=== PATIENT | male | born 1940 | race Caucasian/White ===

== ENCOUNTER → 2016-07-12 | Outpatient (CLI) | payer MEDICARE, OTHER ==
[~2016-07-12] MED LIST: ADVAIR DISKUS1 DS2 IH; AGGRENOX 25 MG-1 CER PO; AGGRENOX ER 251 CER PO; ALLERGY10 M1 PO; AMLODIPINE BES2.5 MG PO; CELEBREX 200MG200 MG PO; CODEINE-GUAIFE120 ML PO; FLEXERIL 1010 MG/TAB PO; FLOVENT DI100 MCG/Ac IH; FLUOXETINE40 MG PO; GABAPENTIN600 MG PO; IPRATROPIUM BROM3 M1 IH; LEVAQUIN 5500 MG/TA1 PO; LEVSIN0.125 MG PO; LOFIBRA54 MG PO; LOPRESSOR 550 MG/TAB PO; LOSARTAN POTAS100 MG PO; METOPROLOL TART50 MG PO; MIRAPEX 1MG PO; MIRAPEX0.25 MG PO; NORCO 325 MG-7.1 TA1 PO; NORVASC2.5 MG PO; PRILOSEC 20MG20 MG PO; PROAIR RESPICL90 MCG INH; PROVENTIL0.09 MG/A1 IH; RANITIDINE150 MG PO; RT ALBUTEROL CC18 GM IH; RT SPIRIVA INH18 MCG IH; TESSALON PERLE100 M1 PO; TYLENOL EXTRA500 M2 PO; VITAMIN D32000 IU PO; ZANTAC150 M1 PO; ZOCOR40 MG PO
== END ==
LOC: RAD 11:57
DX: Z00.00 Encounter for general adult medical examination without abnormal findings (principal); K21.9 Gastro-esophageal reflux disease without esophagitis

== ENCOUNTER → 2016-09-13 | Outpatient (CLI) | payer MEDICARE, OTHER | LOC: LAB 10:45 | DX: J44.9 Chronic obstructive pulmonary disease, unspecified (principal); M15.9 Polyosteoarthritis, unspecified; N18.3 Chronic kidney disease, stage 3 (moderate) ==

== ENCOUNTER → 2016-10-02 | Outpatient (CLI) | payer MEDICARE, OTHER ==
[2016-03-04 13:04] VITALS: BP 147/72
== END ==
LOC: RAD 10:06
DX: R06.02 Shortness of breath (principal)

== ENCOUNTER → 2016-10-09 | Outpatient (CLI) | payer MEDICARE, OTHER ==
[2016-03-04 13:04] VITALS: BP 147/72
== END ==
LOC: LAB 10:05
DX: J44.9 Chronic obstructive pulmonary disease, unspecified (principal); N18.3 Chronic kidney disease, stage 3 (moderate)

== ENCOUNTER → 2016-10-14 | Outpatient (CLI) | payer MEDICARE, OTHER ==
[2016-10-14 12:23] VITALS: BP 145/76
== END ==
LOC: AMSURD 12:13
DX: I10 Essential (primary) hypertension (principal); R06.09 Other forms of dyspnea

== ENCOUNTER → 2016-10-15 | Outpatient (CLI) | payer MEDICARE, OTHER ==
[2016-10-14 12:23] VITALS: BP 145/76
== END ==
LOC: RAD 14:00 → VAS 16:52
DX: R06.09 Other forms of dyspnea (principal); I34.0 Nonrheumatic mitral (valve) insufficiency

== ENCOUNTER → 2016-10-17 | Outpatient (CLI) | payer MEDICARE, OTHER ==
--- NOTE | 2016-10-17 16:55 | NUR ---
Dr. Turner notified for clarification of orders, orders received.
[2016-10-17 17:36] VITALS: BP 131/62
--- NOTE | 2016-10-17 17:46 | NUR ---
patient refuses any fluids or dinner, he states drinking water does not help his cough.
[2016-10-17 19:11] VITALS: BP 121/78
--- NOTE | 2016-10-17 19:12 | NUR ---
at approximately 1855 this patient requests IVF be stopped so he can go home, approx 900ml had infused, IVF were stopped, IV catheter was dc'd, bandaid to site, there is no bleeding noted, he is dismissed per w/c to care of spouse, he states he is aware of f/u appointment with Dr. Turner.
== END ==
LOC: AMSURD 15:26 → LAB 15:26
DX: R06.09 Other forms of dyspnea (principal); R05 Cough; J44.9 Chronic obstructive pulmonary disease, unspecified; I10 Essential (primary) hypertension; N18.3 Chronic kidney disease, stage 3 (moderate)
CPT/HCPCS: J2920; J7030

== ENCOUNTER → 2017-04-25 | Outpatient (CLI) | payer MEDICARE, OTHER ==
[2016-10-17 19:11] VITALS: BP 121/78
[2017-04-25 16:22] LABS: URINE APPEARANCE CLEAR; URINE COLOR YELLOW
[2017-04-25 16:23] LABS: URINE BILIRUBIN NEGATIVE (NEGATIVE); URINE BLOOD TRACE (NEGATIVE); URINE KETONE NEGATIVE (NEGATIVE); URINE NITRATE NEGATIVE (NEGATIVE); URINE PROTEIN(semi-quant) TRACE mg/dL (NEGATIVE); URINE UROBILINOGEN NORMAL (NORMAL)
[2017-04-25 16:24] LABS: URINE LEUKOCYTE ESTERASE NEGATIVE (NEGATIVE)
== END ==
LOC: LAB 15:32
PROVIDERS: Family Medicine
DX: R35.8 Other polyuria (principal)

== ENCOUNTER → 2017-07-17 | Outpatient (CLI) | payer MEDICARE, OTHER ==
[2016-10-17 19:11] VITALS: BP 121/78
[2017-07-17 10:50] LABS: ALBUMIN 4.2 g/dL (3.5-5.0); BUN/CREATININE RATIO 13.5 (6.0-26.0); CALCIUM 9.3 mg/dL (8.4-10.2); POTASSIUM 4.5 mmol/L (3.6-5.0); TOTAL BILIRUBIN 0.6 mg/dL (0.2-1.3); TOTAL PROTEIN 7.5 g/dL (6.3-8.2)
== END ==
LOC: LAB 10:02
PROVIDERS: Family Medicine
DX: E78.2 Mixed hyperlipidemia (principal); Z88.5 Allergy status to narcotic agent; Z91.030 Bee allergy status

== ENCOUNTER → 2017-12-01 | Outpatient (CLI) | payer MEDICARE, OTHER ==
[2016-10-17 19:11] VITALS: BP 121/78
[~2017-12-01] MED LIST changes: +BACTRIM DS 8001 TAB PO; +DITROPAN 5MG TAB5 MG PO; +GOOD NEIGHBOR180 MG PO; +SERTRALINE HYD100 MG PO
[2017-12-01 13:38] LABS: URINE COLOR YELLOW
[2017-12-01 13:39] LABS: URINE APPEARANCE CLEAR; URINE BILIRUBIN NEGATIVE (NEGATIVE); URINE BLOOD NEGATIVE (NEGATIVE); URINE GLUCOSE NEGATIVE (NEGATIVE); URINE KETONE NEGATIVE (NEGATIVE); URINE LEUKOCYTE ESTERASE 1+ (NEGATIVE); URINE NITRATE NEGATIVE (NEGATIVE); URINE PROTEIN(semi-quant) TRACE mg/dL (NEGATIVE); URINE UROBILINOGEN NORMAL (NORMAL)
[2017-12-01 13:40] LABS: URINE WBC 16-30 /hpf (0-3)
== END ==
LOC: LAB 12:35
PROVIDERS: Family Medicine
DX: R39.15 Urgency of urination (principal); N30.00 Acute cystitis without hematuria

== ENCOUNTER 2017-12-02 10:19 | Emergency (ER) | payer MEDICARE, OTHER ==
[~2017-12-02] VITALS: Ht 167.6 cm; Wt 100.0 kg
[~2017-12-02 10:19] MED LIST changes: -BACTRIM DS 8001 TAB PO; -DITROPAN 5MG TAB5 MG PO; -GOOD NEIGHBOR180 MG PO; -SERTRALINE HYD100 MG PO
[2017-12-02 10:49] LABS: EOS # 0.3 (0.04-0.40); HEMATOCRIT 42.7 % (42.0-52.0); HEMOGLOBIN 14.4 g/dL (13.5-18.0); LYMPH# 2.4 (1.50-4.00); MEAN CELL VOLUME 93 fl (78-100); MEAN CORPUSCULAR HEMOGLOBIN 31 pg (27-31); MEAN CORPUSCULAR HGB CONC 34 g/dL (33-37); MEAN PLATELET VOLUME 8.9 fl (7.4-10.4); MONO # 0.5 (0.20-0.80); NEU # 2.5 (1.40-6.50); PLATELET COUNT 180 K/mm3 (130-400); RED CELL DISTRIBUTION WIDTH 14.3 % (11.5-14.5); WHITE BLOOD COUNT 5.7 K/mm3 (4.8-10.8)
[2017-12-02 10:54] LABS: EOS % 5.1 % (0.0-4.0)
[2017-12-02 11:07] LABS: PARTIAL THROMBOPLASTIN TIME 21.8 SECONDS (21.0-32.0); PROTHROMBIN TIME 9.7 SECONDS (9.0-12.0)
[2017-12-02 11:11] LABS: ALBUMIN 4.1 g/dL (3.5-5.0); BUN/CREATININE RATIO 18.3 (6.0-26.0); CALCIUM 8.9 mg/dL (8.4-10.2); POTASSIUM 4.3 mmol/L (3.6-5.0); TOTAL BILIRUBIN 0.5 mg/dL (0.2-1.3); TOTAL PROTEIN 7.4 g/dL (6.3-8.2)
[2017-12-02] MEDS ORDERED: BACTRIM DS 8001 TAB PO (11:16)
[2017-12-02] MEDS ORDERED: AGGRENOX 25 MG-1 CER PO (11:19)
[2017-12-02] MEDS ORDERED: GOOD NEIGHBOR180 MG PO (11:23)
[2017-12-02] MEDS ORDERED: DITROPAN 5MG TAB5 MG PO (11:24)
[2017-12-02] MEDS ORDERED: SERTRALINE HYD100 MG PO (11:25)
[2017-12-02 12:46] LABS: URINE APPEARANCE CLEAR; URINE COLOR YELLOW
[2017-12-02 12:47] LABS: URINE BILIRUBIN NEGATIVE (NEGATIVE); URINE BLOOD NEGATIVE (NEGATIVE); URINE GLUCOSE NEGATIVE (NEGATIVE); URINE KETONE NEGATIVE (NEGATIVE); URINE LEUKOCYTE ESTERASE 2+ (NEGATIVE); URINE MUCUS PRESENT (NOT PRESENT); URINE NITRATE NEGATIVE (NEGATIVE); URINE PROTEIN(semi-quant) TRACE mg/dL (NEGATIVE); URINE UROBILINOGEN NORMAL (NORMAL)
[2017-12-02 14:00] VITALS: BP 137/58
== END 2017-12-02 14:13 | disposition home or self-care (01) ==
LOC: ED 10:19
PROVIDERS: Nurse Practitioner
DX: N39.0 Urinary tract infection, site not specified (principal); R41.0 Disorientation, unspecified; Z86.73 Personal history of transient ischemic attack (TIA), and cerebral infarction without residual deficits; I10 Essential (primary) hypertension; Z87.891 Personal history of nicotine dependence; Z79.899 Other long term (current) drug therapy
CPT/HCPCS: J7030

== ENCOUNTER → 2017-12-11 | Outpatient (CLI) | payer MEDICARE, OTHER ==
[2017-12-02 14:00] VITALS: BP 137/58
[~2017-12-11] MED LIST changes: +BACTRIM DS 8001 TAB PO; +DITROPAN 5MG TAB5 MG PO; +GOOD NEIGHBOR180 MG PO; +SERTRALINE HYD100 MG PO
[2017-12-11 11:57] LABS: URINE APPEARANCE CLEAR; URINE BILIRUBIN NEGATIVE (NEGATIVE); URINE COLOR YELLOW; URINE GLUCOSE NEGATIVE (NEGATIVE); URINE KETONE NEGATIVE (NEGATIVE); URINE NITRATE NEGATIVE (NEGATIVE); URINE PROTEIN(semi-quant) TRACE mg/dL (NEGATIVE); URINE UROBILINOGEN NORMAL (NORMAL)
[2017-12-11 11:58] LABS: URINE BLOOD NEGATIVE (NEGATIVE); URINE LEUKOCYTE ESTERASE 1+ (NEGATIVE); URINE MUCUS PRESENT (NOT PRESENT)
== END ==
LOC: LAB 11:25
PROVIDERS: Family Medicine
DX: N30.00 Acute cystitis without hematuria (principal); N48.1 Balanitis

== ENCOUNTER 2018-07-11 12:52 | Emergency (ER) | payer MEDICARE, OTHER ==
[~2018-07-11] VITALS: Ht 167.6 cm; Wt 96.4 kg
[2018-07-11 14:08] LABS: EOS % 0.1 % (0.0-4.0); HEMATOCRIT 40.9 % (42.0-52.0); HEMOGLOBIN 14.1 g/dL (13.5-18.0); LYMPH# 1.9 (1.50-4.00); MEAN CELL VOLUME 94 fl (78-100); MEAN CORPUSCULAR HEMOGLOBIN 32 pg (27-31); MEAN CORPUSCULAR HGB CONC 35 g/dL (33-37); MEAN PLATELET VOLUME 9.2 fl (7.4-10.4); MONO # 1.2 (0.20-0.80); PLATELET COUNT 160 K/mm3 (130-400); RED BLOOD COUNT 4.35 M/mm3 (4.20-5.60); RED CELL DISTRIBUTION WIDTH 13.8 % (11.5-14.5); WHITE BLOOD COUNT 15.4 K/mm3 (4.8-10.8)
[2018-07-11 14:13] LABS: NEU # 12.3 (1.40-6.50)
[2018-07-11 14:17] LABS: ALBUMIN 4.3 g/dL (3.5-5.0); CALCIUM 9.3 mg/dL (8.4-10.2); POTASSIUM 4.1 mmol/L (3.6-5.0); TOTAL BILIRUBIN 1.8 mg/dL (0.2-1.3); TOTAL PROTEIN 7.7 g/dL (6.3-8.2)
[2018-07-11] MEDS ORDERED: FLOMAX0.4 MG PO (14:22)
[2018-07-11 14:46] LABS: URINE APPEARANCE HAZY; URINE BILIRUBIN NEGATIVE (NEGATIVE); URINE BLOOD 250 ery/uL (NEGATIVE); URINE COLOR YELLOW; URINE GLUCOSE NEGATIVE (NEGATIVE); URINE KETONE NEGATIVE (NEGATIVE); URINE NITRATE POSITIVE (NEGATIVE); URINE PROTEIN(semi-quant) 3+ mg/dL (NEGATIVE); URINE UROBILINOGEN NORMAL (NORMAL)
[2018-07-11 14:47] LABS: URINE LEUKOCYTE ESTERASE 1+ (NEGATIVE); URINE WBC 16-30 /hpf (0-3)
[2018-07-11] MEDS ORDERED: LEVAQUIN 5500 MG/TA1 PO (17:53)
[2018-07-11] MEDS ORDERED: AGGRENOX 25 MG-1 CER PO (18:09)
[2018-07-11 18:13] VITALS: BP 130/54
== END 2018-07-11 18:33 | disposition home or self-care (01) ==
LOC: ED 12:52
PROVIDERS: Family Medicine
DX: R32 Unspecified urinary incontinence (principal); R27.0 Ataxia, unspecified; R06.00 Dyspnea, unspecified; I12.9 Hypertensive chronic kidney disease with stage 1 through stage 4 chronic kidney disease, or unspecified chronic kidney disease; N18.9 Chronic kidney disease, unspecified; J44.9 Chronic obstructive pulmonary disease, unspecified; N13.9 Obstructive and reflux uropathy, unspecified; N39.0 Urinary tract infection, site not specified; Z86.73 Personal history of transient ischemic attack (TIA), and cerebral infarction without residual deficits; Z79.82 Long term (current) use of aspirin

== ENCOUNTER → 2018-08-08 | Outpatient (CLI) | payer MEDICARE, OTHER ==
[2018-07-11 18:13] VITALS: BP 130/54
[~2018-08-08] MED LIST changes: +FLOMAX0.4 MG PO
[2018-08-08 09:11] LABS: ALBUMIN 4.3 g/dL (3.5-5.0); CALCIUM 9.2 mg/dL (8.4-10.2); POTASSIUM 4.3 mmol/L (3.6-5.0); TOTAL BILIRUBIN 0.5 mg/dL (0.2-1.3); TOTAL PROTEIN 7.3 g/dL (6.3-8.2)
== END ==
LOC: LAB 07:59
PROVIDERS: Family Medicine
DX: I12.9 Hypertensive chronic kidney disease with stage 1 through stage 4 chronic kidney disease, or unspecified chronic kidney disease (principal); N18.3 Chronic kidney disease, stage 3 (moderate); E78.2 Mixed hyperlipidemia

== ENCOUNTER → 2018-09-24 | Outpatient (CLI) | payer MEDICARE, OTHER | LOC: RAD 07:27 | DX: N18.9 Chronic kidney disease, unspecified (principal); N28.9 Disorder of kidney and ureter, unspecified ==

== ENCOUNTER → 2018-10-14 | Outpatient (CLI) | payer MEDICARE, OTHER ==
[2018-10-14 12:28] LABS: HEMATOCRIT 42.8 % (42.0-52.0); MEAN PLATELET VOLUME 9.4 fl (7.4-10.4); RED BLOOD COUNT 4.59 M/mm3 (4.20-5.60); RED CELL DISTRIBUTION WIDTH 14.6 % (11.5-14.5); WHITE BLOOD COUNT 5.8 K/mm3 (4.8-10.8)
[2018-10-14 13:26] LABS: ALBUMIN 4.2 g/dL (3.5-5.0); CALCIUM 9.3 mg/dL (8.4-10.2); POTASSIUM 4.5 mmol/L (3.6-5.0)
[2018-10-14 13:39] LABS: URINE APPEARANCE CLOUDY; URINE BILIRUBIN NEGATIVE (NEGATIVE); URINE COLOR YELLOW; URINE GLUCOSE NEGATIVE (NEGATIVE); URINE KETONE NEGATIVE (NEGATIVE); URINE PROTEIN(semi-quant) 1+ mg/dL (NEGATIVE); URINE UROBILINOGEN NORMAL (NORMAL)
[2018-10-14 13:40] LABS: URINE BLOOD TRACE (NEGATIVE); URINE LEUKOCYTE ESTERASE 2+ (NEGATIVE); URINE NITRATE POSITIVE (NEGATIVE); URINE WBC >50 /hpf (0-3)
== END ==
LOC: LAB 11:31
PROVIDERS: Family Medicine
DX: I12.9 Hypertensive chronic kidney disease with stage 1 through stage 4 chronic kidney disease, or unspecified chronic kidney disease (principal); N18.4 Chronic kidney disease, stage 4 (severe)

== ENCOUNTER → 2018-10-27 | Outpatient (CLI) | payer MEDICARE, OTHER ==
[2018-10-27 08:04] LABS: HEMATOCRIT 45.4 % (42.0-52.0); HEMOGLOBIN 14.9 g/dL (13.5-18.0)
[2018-10-27 08:28] LABS: URINE APPEARANCE CLEAR; URINE COLOR YELLOW
[2018-10-27 08:29] LABS: URINE BILIRUBIN NEGATIVE (NEGATIVE); URINE BLOOD NEGATIVE (NEGATIVE); URINE GLUCOSE NEGATIVE (NEGATIVE); URINE KETONE NEGATIVE (NEGATIVE); URINE NITRATE NEGATIVE (NEGATIVE); URINE PROTEIN(semi-quant) 1+ mg/dL (NEGATIVE); URINE UROBILINOGEN NORMAL (NORMAL)
[2018-10-27 08:36] LABS: URINE LEUKOCYTE ESTERASE 1+ (NEGATIVE)
[2018-10-27 08:39] LABS: URINE WBC 16-30 /hpf (0-3)
[2018-10-27 08:43] LABS: URINE MUCUS PRESENT (NOT PRESENT)
[2018-10-27 09:27] LABS: ALBUMIN 4.2 g/dL (3.4-4.8); CALCIUM 9.8 mg/dL (8.8-10.0)
== END ==
LOC: LAB 07:45
PROVIDERS: Internal Medicine
DX: I12.9 Hypertensive chronic kidney disease with stage 1 through stage 4 chronic kidney disease, or unspecified chronic kidney disease (principal); N18.4 Chronic kidney disease, stage 4 (severe)

== ENCOUNTER → 2018-12-07 | Outpatient (CLI) | payer MEDICARE, OTHER ==
[~2018-12-07] VITALS: Ht 167.6 cm; Wt 100.9 kg
[~2018-12-07] MED LIST changes: +BACTRIM DS TAB1 EACH PO
[2018-12-07 14:58] LABS: CALCIUM 9.4 mg/dL (8.3-10.5); POTASSIUM 4.3 mmol/L (3.5-5.1)
[2018-12-07 15:06] VITALS: BP 179/85
[2018-12-07 15:30] LABS: URINE APPEARANCE HAZY; URINE COLOR YELLOW
[2018-12-07 15:31] LABS: URINE BILIRUBIN NEGATIVE (NEGATIVE); URINE BLOOD TRACE (NEGATIVE); URINE GLUCOSE NEGATIVE (NEGATIVE); URINE KETONE NEGATIVE (NEGATIVE); URINE LEUKOCYTE ESTERASE 2+ (NEGATIVE); URINE NITRATE POSITIVE (NEGATIVE); URINE PROTEIN(semi-quant) 1+ mg/dL (NEGATIVE); URINE UROBILINOGEN NORMAL (NORMAL); URINE WBC >50 /hpf (0-3)
== END ==
LOC: AMSURD 14:22
PROVIDERS: Family Medicine
DX: I12.9 Hypertensive chronic kidney disease with stage 1 through stage 4 chronic kidney disease, or unspecified chronic kidney disease (principal); N18.3 Chronic kidney disease, stage 3 (moderate); R01.1 Cardiac murmur, unspecified; R41.0 Disorientation, unspecified

== ENCOUNTER → 2018-12-09 | Outpatient (CLI) | payer MEDICARE, OTHER ==
[2018-12-07 15:06] VITALS: BP 179/85
== END ==
LOC: RAD 13:21
DX: I51.7 Cardiomegaly (principal); I10 Essential (primary) hypertension; I35.0 Nonrheumatic aortic (valve) stenosis; R01.1 Cardiac murmur, unspecified; R60.9 Edema, unspecified

== ENCOUNTER → 2018-12-17 | Outpatient (CLI) | payer MEDICARE, OTHER ==
[2018-12-07 15:06] VITALS: BP 179/85
[2018-12-17 08:30] LABS: URINE COLOR YELLOW
[2018-12-17 08:31] LABS: URINE APPEARANCE CLOUDY; URINE BILIRUBIN NEGATIVE (NEGATIVE); URINE BLOOD TRACE (NEGATIVE); URINE GLUCOSE NEGATIVE (NEGATIVE); URINE KETONE NEGATIVE (NEGATIVE); URINE LEUKOCYTE ESTERASE 1+ (NEGATIVE); URINE MUCUS PRESENT (NOT PRESENT); URINE NITRATE NEGATIVE (NEGATIVE); URINE PROTEIN(semi-quant) TRACE mg/dL (NEGATIVE); URINE UROBILINOGEN NORMAL (NORMAL); URINE WBC >50 /hpf (0-3)
== END ==
LOC: LAB 07:51
PROVIDERS: Family Medicine
DX: N39.0 Urinary tract infection, site not specified (principal)

== ENCOUNTER → 2019-01-21 | Outpatient (CLI) | payer MEDICARE, OTHER ==
[2019-01-07 14:21] VITALS: BP 115/74
[~2019-01-21] MED LIST changes: +MASON NATURAL500 MG PO; +NATURAL L-LYSI500 MG PO; +OMEGA 3 1,0001 EACH PO; +ST. JOSEPH ASPI81 MG PO; +SUPER B-50 COM1 EACH PO
== END ==
LOC: RAD 07:03
PROVIDERS: Internal Medicine Interventional Cardiology
DX: I65.23 Occlusion and stenosis of bilateral carotid arteries (principal)
CPT/HCPCS: Q9967

== ENCOUNTER → 2019-01-28 | Outpatient (CLI) | payer MEDICARE, OTHER ==
[2019-01-07 14:21] VITALS: BP 115/74
[2019-01-28 13:17] LABS: URINE APPEARANCE HAZY; URINE COLOR YELLOW
[2019-01-28 13:18] LABS: URINE BILIRUBIN NEGATIVE (NEGATIVE); URINE BLOOD NEGATIVE (NEGATIVE); URINE GLUCOSE NEGATIVE (NEGATIVE); URINE KETONE NEGATIVE (NEGATIVE); URINE LEUKOCYTE ESTERASE TRACE (NEGATIVE); URINE NITRATE NEGATIVE (NEGATIVE); URINE PROTEIN(semi-quant) TRACE mg/dL (NEGATIVE); URINE UROBILINOGEN NORMAL (NORMAL)
== END ==
LOC: LAB 11:46
PROVIDERS: Internal Medicine
DX: N18.4 Chronic kidney disease, stage 4 (severe) (principal)

== ENCOUNTER → 2019-02-11 | Outpatient (CLI) | payer MEDICARE, OTHER ==
[2019-01-07 14:21] VITALS: BP 115/74
[2019-02-11 11:47] LABS: URINE APPEARANCE CLOUDY; URINE BILIRUBIN NEGATIVE (NEGATIVE); URINE BLOOD 250 ery/uL (NEGATIVE); URINE COLOR YELLOW; URINE GLUCOSE NEGATIVE (NEGATIVE); URINE KETONE NEGATIVE (NEGATIVE); URINE LEUKOCYTE ESTERASE 2+ (NEGATIVE); URINE NITRATE NEGATIVE (NEGATIVE); URINE PROTEIN(semi-quant) 2+ mg/dL (NEGATIVE); URINE UROBILINOGEN NORMAL (NORMAL); URINE WBC >50 /hpf (0-3)
== END ==
LOC: LAB 11:06
PROVIDERS: Urology
DX: N39.0 Urinary tract infection, site not specified (principal)

== ENCOUNTER 2019-02-21 21:38 | Emergency (ER) | payer MEDICARE, OTHER ==
[~2019-02-21] VITALS: Ht 165.1 cm; Wt 85.9 kg
[2019-02-21 22:59] LABS: EOS # 0.2 (0.04-0.40); EOS % 1.7 % (0.0-4.0); HEMATOCRIT 36.7 % (42.0-52.0); HEMOGLOBIN 12.3 g/dL (13.5-18.0); MEAN CELL VOLUME 90 fl (78-100); MEAN CORPUSCULAR HEMOGLOBIN 30 pg (27-31); MEAN CORPUSCULAR HGB CONC 34 g/dL (33-37); MEAN PLATELET VOLUME 8.8 fl (7.4-10.4); MONO # 0.7 (0.20-0.80); NEU # 7.7 (1.40-6.50); PLATELET COUNT 279 K/mm3 (130-400); RED BLOOD COUNT 4.07 M/mm3 (4.20-5.60); RED CELL DISTRIBUTION WIDTH 14.5 % (11.5-14.5); WHITE BLOOD COUNT 10.7 K/mm3 (4.8-10.8)
[2019-02-21] MEDS ORDERED: METOPROLOL SUCC25 M1 PO (23:01)
[2019-02-21] MEDS ORDERED: QUETIAPINE FUMA25 M3 PO (23:01)
[2019-02-21] MEDS ORDERED: AGGRENOX 25 MG-1 CER PO (23:02)
[2019-02-21 23:07] LABS: POTASSIUM 4.4 mmol/L (3.5-5.1)
[2019-02-21 23:08] LABS: CALCIUM 9.5 mg/dL (8.3-10.5)
[2019-02-21 23:14] LABS: URINE APPEARANCE CLEAR; URINE BILIRUBIN NEGATIVE (NEGATIVE); URINE BLOOD NEGATIVE (NEGATIVE); URINE COLOR YELLOW; URINE GLUCOSE NEGATIVE (NEGATIVE); URINE KETONE NEGATIVE (NEGATIVE); URINE NITRATE NEGATIVE (NEGATIVE); URINE PROTEIN(semi-quant) TRACE mg/dL (NEGATIVE); URINE UROBILINOGEN NORMAL (NORMAL)
[2019-02-21 23:15] LABS: URINE LEUKOCYTE ESTERASE TRACE (NEGATIVE)
[2019-02-22] MEDS ORDERED: CEPHALEXIN500 M1 PO (00:22)
[2019-02-22 00:25] VITALS: BP 123/65
== END 2019-02-22 00:25 | disposition home or self-care (01) ==
LOC: ED 21:38
PROVIDERS: Family Medicine
DX: N39.0 Urinary tract infection, site not specified (principal); R53.81 Other malaise; J44.9 Chronic obstructive pulmonary disease, unspecified; I10 Essential (primary) hypertension; F41.9 Anxiety disorder, unspecified; F32.9 Major depressive disorder, single episode, unspecified; Z79.82 Long term (current) use of aspirin; Z87.442 Personal history of urinary calculi; Z86.73 Personal history of transient ischemic attack (TIA), and cerebral infarction without residual deficits
CPT/HCPCS: A4216; J0696; J7030

== ENCOUNTER → 2019-03-04 | Outpatient (CLI) | payer MEDICARE, OTHER ==
[2019-02-22 00:25] VITALS: BP 123/65
[~2019-03-04] MED LIST changes: +CEPHALEXIN500 M1 PO; +METOPROLOL SUCC25 M1 PO; +QUETIAPINE FUMA25 M3 PO
== END ==
LOC: RAD 08:32
DX: N45.3 Epididymo-orchitis (principal)

== ENCOUNTER → 2019-03-18 | Outpatient (CLI) | payer MEDICARE, OTHER ==
[2019-02-22 00:25] VITALS: BP 123/65
[2019-03-18 11:36] LABS: URINE APPEARANCE CLOUDY; URINE BILIRUBIN NEGATIVE (NEGATIVE); URINE BLOOD NEGATIVE (NEGATIVE); URINE COLOR YELLOW; URINE GLUCOSE NEGATIVE (NEGATIVE); URINE KETONE NEGATIVE (NEGATIVE); URINE LEUKOCYTE ESTERASE 1+ (NEGATIVE); URINE NITRATE NEGATIVE (NEGATIVE); URINE PROTEIN(semi-quant) TRACE mg/dL (NEGATIVE); URINE UROBILINOGEN NORMAL (NORMAL)
[2019-03-18 11:37] LABS: URINE MUCUS PRESENT (NOT PRESENT)
== END ==
LOC: LAB 11:15
PROVIDERS: Urology
DX: R35.0 Frequency of micturition (principal); R35.1 Nocturia

== ENCOUNTER → 2019-03-26 | Outpatient (CLI) | payer MEDICARE, OTHER | LOC: LAB 13:55 | DX: R41.3 Other amnesia (principal) ==

== ENCOUNTER → 2019-08-06 | Outpatient (CLI) | payer MEDICARE, OTHER ==
[~2019-08-06] MED LIST changes: +CARBIDOPA/LEVODOPA PO; +MEMANTINE HCL10 MG PO
[2019-08-06 13:44] LABS: CALCIUM 9.5 mg/dL (8.3-10.5)
== END ==
LOC: LAB 13:15
PROVIDERS: Internal Medicine Nephrology
DX: I10 Essential (primary) hypertension (principal)

== ENCOUNTER 2019-08-08 12:04 | Emergency (ER) | payer MEDICARE, OTHER ==
[~2019-08-08] VITALS: Wt 94.5 kg
[~2019-08-08 12:04] MED LIST changes: -CARBIDOPA/LEVODOPA PO; -MEMANTINE HCL10 MG PO
[2019-08-08] MEDS ORDERED: CARBIDOPA/LEVODOPA PO (12:24)
[2019-08-08] MEDS ORDERED: MEMANTINE HCL10 MG PO (12:24)
[2019-08-08 12:46] LABS: EOS # 0.2 (0.04-0.40); EOS % 3.1 % (0.0-4.0); HEMATOCRIT 43.5 % (42.0-52.0); HEMOGLOBIN 14.6 g/dL (13.5-18.0); LYMPH# 3.1 (1.50-4.00); MEAN CELL VOLUME 93 fl (78-100); MEAN CORPUSCULAR HEMOGLOBIN 31 pg (27-31); MEAN CORPUSCULAR HGB CONC 34 g/dL (33-37); MEAN PLATELET VOLUME 8.5 fl (7.4-10.4); MONO # 0.5 (0.20-0.80); NEU # 3.8 (1.40-6.50); PLATELET COUNT 234 K/mm3 (130-400); RED BLOOD COUNT 4.69 M/mm3 (4.20-5.60); RED CELL DISTRIBUTION WIDTH 14.5 % (11.5-14.5); WHITE BLOOD COUNT 7.7 K/mm3 (4.8-10.8)
[2019-08-08 12:54] LABS: POTASSIUM 4.1 mmol/L (3.5-5.1)
[2019-08-08 12:55] LABS: CALCIUM 8.9 mg/dL (8.3-10.5)
[2019-08-08 14:10] LABS: URINE APPEARANCE CLOUDY; URINE BILIRUBIN NEGATIVE (NEGATIVE); URINE BLOOD 50 ery/uL (NEGATIVE); URINE COLOR YELLOW; URINE GLUCOSE NEGATIVE (NEGATIVE); URINE KETONE NEGATIVE (NEGATIVE); URINE LEUKOCYTE ESTERASE 2+ (NEGATIVE); URINE NITRATE POSITIVE (NEGATIVE); URINE PROTEIN(semi-quant) 3+ mg/dL (NEGATIVE); URINE UROBILINOGEN NORMAL (NORMAL); URINE WBC >50 /hpf (0-3)
[2019-08-08] MEDS ORDERED: CEPHALEXIN500 M1 PO (15:26)
[2019-08-08 15:29] VITALS: BP 112/65
== END 2019-08-08 15:35 | disposition home or self-care (01) ==
LOC: ED 12:04
PROVIDERS: Family Medicine
DX: N30.90 Cystitis, unspecified without hematuria (principal); E86.9 Volume depletion, unspecified; F03.90 Unspecified dementia, unspecified severity, without behavioral disturbance, psychotic disturbance, mood disturbance, and anxiety; J44.9 Chronic obstructive pulmonary disease, unspecified; E78.5 Hyperlipidemia, unspecified; I12.9 Hypertensive chronic kidney disease with stage 1 through stage 4 chronic kidney disease, or unspecified chronic kidney disease; N18.9 Chronic kidney disease, unspecified; F41.9 Anxiety disorder, unspecified; F32.9 Major depressive disorder, single episode, unspecified; G20 Parkinson's disease; Z79.82 Long term (current) use of aspirin
CPT/HCPCS: A4216; J0696; J7030

== ENCOUNTER → 2019-09-02 | Outpatient (CLI) | payer MEDICARE, OTHER ==
[2019-08-08 15:29] VITALS: BP 112/65
[~2019-09-02] MED LIST changes: +CARBIDOPA/LEVODOPA PO; +CILOSTAZOL50 M1 PO; +MEMANTINE HCL10 MG PO; +PEPCID 20MG TAB20 MG PO; +QUETIAPINE FUMA50 M1 PO; +ZOCOR40 M1 PO; -ZOCOR40 MG PO
[2019-09-02 15:22] LABS: URINE COLOR ORANGE
[2019-09-02 15:23] LABS: URINE APPEARANCE CLOUDY; URINE WBC >50 /hpf (0-3)
== END ==
LOC: LAB 14:19
PROVIDERS: Family Medicine
DX: N39.0 Urinary tract infection, site not specified (principal)

== ENCOUNTER 2019-09-03 11:27 | Inpatient (IN) | payer MEDICARE, OTHER ==
[~2019-09-03] VITALS: Ht 167.6 cm; Wt 94.3 kg
[~2019-09-03 11:27] MED LIST changes: -CILOSTAZOL50 M1 PO; -PEPCID 20MG TAB20 MG PO; -QUETIAPINE FUMA50 M1 PO
[2019-09-03 13:38] VITALS: BP 110/67
[2019-09-03 13:42] VITALS: BP 110/67
[2019-09-03 13:56] VITALS: BP 110/67
[2019-09-03 17:43] VITALS: BP 135/91
[2019-09-03 18:14] VITALS: BP 135/91
[2019-09-03 22:00] VITALS: BP 113/66
[2019-09-04 06:19] VITALS: BP 109/63
[2019-09-04 08:01] LABS: EOS # 0.3 (0.04-0.40); HEMATOCRIT 37.4 % (42.0-52.0); HEMOGLOBIN 12.2 g/dL (13.5-18.0); LYMPH# 1.3 (1.50-4.00); MEAN CELL VOLUME 95 fl (78-100); MEAN CORPUSCULAR HEMOGLOBIN 31 pg (27-31); MEAN CORPUSCULAR HGB CONC 33 g/dL (33-37); MEAN PLATELET VOLUME 8.8 fl (7.4-10.4); MONO # 0.6 (0.20-0.80); NEU # 4.5 (1.40-6.50); PLATELET COUNT 198 K/mm3 (130-400); RED BLOOD COUNT 3.93 M/mm3 (4.20-5.60); RED CELL DISTRIBUTION WIDTH 13.7 % (11.5-14.5); WHITE BLOOD COUNT 6.7 K/mm3 (4.8-10.8)
[2019-09-04 08:10] LABS: ALBUMIN 3.3 g/dL (3.4-4.8)
[2019-09-04 08:11] LABS: POTASSIUM 4.7 mmol/L (3.5-5.1)
[2019-09-04 08:13] LABS: TOTAL PROTEIN 6.8 g/dL (6.2-8.1)
[2019-09-04 08:15] LABS: TOTAL BILIRUBIN 0.5 mg/dL (0.2-1.2)
[2019-09-04 10:03] VITALS: BP 112/69
[2019-09-04 14:08] VITALS: BP 99/61
[2019-09-04 17:33] VITALS: BP 113/69
[2019-09-04 22:00] VITALS: BP 119/61
[2019-09-05 02:00] VITALS: BP 126/67
[2019-09-05 06:07] VITALS: BP 118/66
[2019-09-05 10:11] VITALS: BP 112/68
[2019-09-05 14:20] VITALS: BP 109/68
[2019-09-05 17:34] VITALS: BP 109/70
[2019-09-05 22:07] VITALS: BP 103/63
[2019-09-06 02:08] VITALS: BP 147/80
[2019-09-06 06:10] VITALS: BP 146/78
[2019-09-06 09:40] VITALS: BP 115/52
[2019-09-06] MEDS ORDERED: QUETIAPINE FUMA50 M1 PO (13:33)
[2019-09-06] MEDS ORDERED: CILOSTAZOL50 M1 PO (13:34)
[2019-09-06] MEDS ORDERED: PEPCID 20MG TAB20 MG PO (13:50)
== END 2019-09-06 11:04 | disposition swing bed (61) | DRG 690 ==
LOC: MED/SURG 11:27
PROVIDERS: ADMIT Nurse Practitioner Primary Care
DX: N39.0 Urinary tract infection, site not specified (principal); N18.4 Chronic kidney disease, stage 4 (severe); N17.9 Acute kidney failure, unspecified; I12.9 Hypertensive chronic kidney disease with stage 1 through stage 4 chronic kidney disease, or unspecified chronic kidney disease; E86.0 Dehydration; G20 Parkinson's disease; G30.9 Alzheimer's disease, unspecified; F02.80 Dementia in other diseases classified elsewhere, unspecified severity, without behavioral disturbance, psychotic disturbance, mood disturbance, and anxiety; I35.0 Nonrheumatic aortic (valve) stenosis; K21.9 Gastro-esophageal reflux disease without esophagitis; F32.9 Major depressive disorder, single episode, unspecified; B96.20 Unspecified Escherichia coli [E. coli] as the cause of diseases classified elsewhere; F41.9 Anxiety disorder, unspecified; R53.1 Weakness; Z79.82 Long term (current) use of aspirin; Z86.73 Personal history of transient ischemic attack (TIA), and cerebral infarction without residual deficits
CPT/HCPCS: A4216; J0696; J1650; J7030

== ENCOUNTER 2019-09-06 11:04 | Inpatient (IN) | payer MEDICARE, OTHER ==
[~2019-09-06] VITALS: Ht 167.6 cm; Wt 94.3 kg
[2019-09-06 11:00] VITALS: BP 115/52
[2019-09-06 11:29] LABS: EOS # 0.4 (0.04-0.40); HEMATOCRIT 35.4 % (42.0-52.0); HEMOGLOBIN 11.4 g/dL (13.5-18.0); LYMPH# 2.2 (1.50-4.00); MEAN CELL VOLUME 97 fl (78-100); MEAN CORPUSCULAR HEMOGLOBIN 31 pg (27-31); MEAN CORPUSCULAR HGB CONC 32 g/dL (33-37); MEAN PLATELET VOLUME 8.5 fl (7.4-10.4); MONO # 0.5 (0.20-0.80); NEU # 2.7 (1.40-6.50); PLATELET COUNT 249 K/mm3 (130-400); RED BLOOD COUNT 3.67 M/mm3 (4.20-5.60); RED CELL DISTRIBUTION WIDTH 13.7 % (11.5-14.5); WHITE BLOOD COUNT 5.9 K/mm3 (4.8-10.8)
[2019-09-06 11:46] LABS: ALBUMIN 3.3 g/dL (3.4-4.8); POTASSIUM 4.2 mmol/L (3.5-5.1)
[2019-09-06 11:47] LABS: CALCIUM 9.4 mg/dL (8.3-10.5)
[2019-09-06 11:48] LABS: TOTAL PROTEIN 6.8 g/dL (6.2-8.1)
[2019-09-06 11:50] LABS: TOTAL BILIRUBIN 0.2 mg/dL (0.2-1.2)
[2019-09-06 12:04] LABS: EOS % 6.3 % (0.0-4.0)
[2019-09-06] MEDS ORDERED: QUETIAPINE FUMA50 M1 PO (13:33)
[2019-09-06] MEDS ORDERED: CILOSTAZOL50 M1 PO (13:34)
[2019-09-06] MEDS ORDERED: PEPCID 20MG TAB20 MG PO (13:50)
[2019-09-06 14:08] VITALS: BP 115/52
[2019-09-06 18:00] VITALS: BP 103/65
[2019-09-07 05:36] VITALS: BP 147/83
[2019-09-07 18:17] VITALS: BP 145/70
[2019-09-08 05:23] VITALS: BP 134/75
[2019-09-08 16:40] VITALS: BP 108/64
[2019-09-09 05:55] VITALS: BP 135/76
[2019-09-09 16:27] VITALS: BP 127/71
[2019-09-10 05:38] VITALS: BP 121/70
[2019-09-10 10:07] LABS: URINE APPEARANCE CLOUDY; URINE BILIRUBIN NEGATIVE (NEGATIVE); URINE BLOOD TRACE (NEGATIVE); URINE COLOR YELLOW; URINE GLUCOSE NEGATIVE (NEGATIVE); URINE KETONE NEGATIVE (NEGATIVE); URINE LEUKOCYTE ESTERASE 2+ (NEGATIVE); URINE NITRATE NEGATIVE (NEGATIVE); URINE PROTEIN(semi-quant) 1+ mg/dL (NEGATIVE); URINE UROBILINOGEN NORMAL (NORMAL); URINE WBC >50 /hpf (0-3)
[2019-09-10 10:08] LABS: URINE MUCUS PRESENT (NOT PRESENT)
[2019-09-10 17:35] VITALS: BP 117/74
[2019-09-11 06:17] VITALS: BP 132/62
[2019-09-11 16:14] VITALS: BP 107/67
[2019-09-12 05:49] VITALS: BP 102/64
[2019-09-12 18:00] VITALS: BP 159/70
[2019-09-13 05:42] VITALS: BP 126/72
[2019-09-13 09:06] LABS: EOS # 0.2 (0.04-0.40); EOS % 3.9 % (0.0-4.0); HEMATOCRIT 38.3 % (42.0-52.0); HEMOGLOBIN 12.4 g/dL (13.5-18.0); LYMPH# 2.8 (1.50-4.00); MEAN CELL VOLUME 96 fl (78-100); MEAN CORPUSCULAR HEMOGLOBIN 31 pg (27-31); MEAN CORPUSCULAR HGB CONC 32 g/dL (33-37); MEAN PLATELET VOLUME 8.3 fl (7.4-10.4); MONO # 0.4 (0.20-0.80); NEU # 2.1 (1.40-6.50); PLATELET COUNT 309 K/mm3 (130-400); POTASSIUM 3.9 mmol/L (3.5-5.1); RED BLOOD COUNT 3.99 M/mm3 (4.20-5.60); RED CELL DISTRIBUTION WIDTH 13.3 % (11.5-14.5); WHITE BLOOD COUNT 5.6 K/mm3 (4.8-10.8)
[2019-09-13 17:04] VITALS: BP 122/66
[2019-09-14 05:53] VITALS: BP 143/665
[2019-09-14] MEDS ORDERED: SELSUN BLUE MO207 ML TP (07:43)
[2019-09-14] MEDS ORDERED: ELIDEL30 GM TP (07:46)
== END 2019-09-14 11:04 | disposition home or self-care (01) | DRG 948 ==
LOC: MED/SURG 11:04
PROVIDERS: Family Medicine; Internal Medicine; ADMIT Nurse Practitioner Primary Care
DX: R53.81 Other malaise (principal); N39.0 Urinary tract infection, site not specified; N18.4 Chronic kidney disease, stage 4 (severe); I12.9 Hypertensive chronic kidney disease with stage 1 through stage 4 chronic kidney disease, or unspecified chronic kidney disease; E86.0 Dehydration; J44.9 Chronic obstructive pulmonary disease, unspecified; I35.0 Nonrheumatic aortic (valve) stenosis; G30.9 Alzheimer's disease, unspecified; L21.9 Seborrheic dermatitis, unspecified; F02.80 Dementia in other diseases classified elsewhere, unspecified severity, without behavioral disturbance, psychotic disturbance, mood disturbance, and anxiety; G20 Parkinson's disease; K21.9 Gastro-esophageal reflux disease without esophagitis; F32.9 Major depressive disorder, single episode, unspecified; F41.9 Anxiety disorder, unspecified; Z86.73 Personal history of transient ischemic attack (TIA), and cerebral infarction without residual deficits; Z88.5 Allergy status to narcotic agent
CPT/HCPCS: A4216; J0696; J7030

== ENCOUNTER → 2019-10-04 | Outpatient (CLI) | payer MEDICARE, OTHER ==
[2019-09-14 05:53] VITALS: BP 143/665
[~2019-10-04] MED LIST changes: +CILOSTAZOL50 M1 PO; +ELIDEL30 GM TP; +PEPCID 20MG TAB20 MG PO; +QUETIAPINE FUMA50 M1 PO; +SELSUN BLUE MO207 ML TP
[2019-10-04 13:43] LABS: ALBUMIN 3.8 g/dL (3.4-4.8); POTASSIUM 4.5 mmol/L (3.5-5.1)
[2019-10-04 13:45] LABS: TOTAL PROTEIN 6.9 g/dL (6.2-8.1)
[2019-10-04 13:47] LABS: TOTAL BILIRUBIN 0.4 mg/dL (0.2-1.2)
== END ==
LOC: LAB 13:16
PROVIDERS: Family Medicine
DX: N19 Unspecified kidney failure (principal); N39.0 Urinary tract infection, site not specified

== ENCOUNTER → 2019-10-08 | Outpatient (CLI) | payer MEDICARE, OTHER ==
[2019-09-14 05:53] VITALS: BP 143/665
[2019-10-08 12:10] LABS: URINE APPEARANCE CLOUDY; URINE COLOR ORANGE
[2019-10-08 12:11] LABS: URINE MUCUS PRESENT (NOT PRESENT); URINE WBC 16-30 /hpf (0-3)
== END ==
LOC: LAB 11:35
PROVIDERS: Family Medicine
DX: N19 Unspecified kidney failure (principal); N39.0 Urinary tract infection, site not specified

== ENCOUNTER → 2020-01-03 | Outpatient (CLI) | payer MEDICARE, OTHER ==
[2020-01-03 17:30] LABS: URINE APPEARANCE CLEAR; URINE BILIRUBIN NEGATIVE (NEGATIVE); URINE BLOOD NEGATIVE (NEGATIVE); URINE COLOR YELLOW; URINE GLUCOSE NEGATIVE (NEGATIVE); URINE KETONE NEGATIVE (NEGATIVE); URINE LEUKOCYTE ESTERASE TRACE (NEGATIVE); URINE NITRATE NEGATIVE (NEGATIVE); URINE PROTEIN(semi-quant) 1+ mg/dL (NEGATIVE); URINE UROBILINOGEN NORMAL (NORMAL)
== END ==
LOC: LAB 16:23
PROVIDERS: Family Medicine
DX: R19.8 Other specified symptoms and signs involving the digestive system and abdomen (principal); R39.15 Urgency of urination

== ENCOUNTER → 2020-01-12 | Outpatient (CLI) | payer MEDICARE, OTHER ==
[2020-01-12 12:52] LABS: URINE APPEARANCE HAZY; URINE BILIRUBIN NEGATIVE (NEGATIVE); URINE BLOOD NEGATIVE (NEGATIVE); URINE COLOR YELLOW; URINE GLUCOSE NEGATIVE (NEGATIVE); URINE KETONE NEGATIVE (NEGATIVE); URINE LEUKOCYTE ESTERASE 1+ (NEGATIVE); URINE NITRATE NEGATIVE (NEGATIVE); URINE PROTEIN(semi-quant) TRACE mg/dL (NEGATIVE); URINE UROBILINOGEN NORMAL (NORMAL); URINE WBC 31-50 /hpf (0-3)
== END ==
LOC: LAB 12:26
PROVIDERS: Family Medicine
DX: N39.0 Urinary tract infection, site not specified (principal)

== ENCOUNTER → 2020-02-11 | Outpatient (CLI) | payer MEDICARE, OTHER ==
[2020-02-11 11:58] LABS: EOS # 0.2 (0.04-0.40); EOS % 3.2 % (0.0-4.0); HEMATOCRIT 42.5 % (42.0-52.0); HEMOGLOBIN 13.8 g/dL (13.5-18.0); LYMPH# 2.4 (1.50-4.00); MEAN CELL VOLUME 95 fl (78-100); MEAN CORPUSCULAR HEMOGLOBIN 31 pg (27-31); MEAN CORPUSCULAR HGB CONC 33 g/dL (33-37); MEAN PLATELET VOLUME 8.4 fl (7.4-10.4); MONO # 0.6 (0.20-0.80); PLATELET COUNT 252 K/mm3 (130-400); RED BLOOD COUNT 4.46 M/mm3 (4.20-5.60); RED CELL DISTRIBUTION WIDTH 13.5 % (11.5-14.5); WHITE BLOOD COUNT 7.3 K/mm3 (4.8-10.8)
[2020-02-11 12:02] LABS: POTASSIUM 4.5 mmol/L (3.5-5.1)
[2020-02-11 12:03] LABS: CALCIUM 9.3 mg/dL (8.3-10.5)
== END ==
LOC: LAB 11:43
PROVIDERS: Internal Medicine Interventional Cardiology
DX: Z01.812 Encounter for preprocedural laboratory examination (principal); Z11.59 Encounter for screening for other viral diseases; I12.9 Hypertensive chronic kidney disease with stage 1 through stage 4 chronic kidney disease, or unspecified chronic kidney disease; N18.3 Chronic kidney disease, stage 3 (moderate); I73.9 Peripheral vascular disease, unspecified; Z20.828 Contact with and (suspected) exposure to other viral communicable diseases

== ENCOUNTER → 2020-03-27 | Outpatient (CLI) | payer MEDICARE, OTHER ==
[2020-03-27 14:49] LABS: ALBUMIN 4.1 g/dL (3.4-4.8)
[2020-03-27 14:52] LABS: TOTAL PROTEIN 7.2 g/dL (6.2-8.1)
[2020-03-27 14:54] LABS: TOTAL BILIRUBIN 0.4 mg/dL (0.2-1.2)
[2020-03-27 14:57] LABS: DIRECT BILIRUBIN 0.2 mg/dL (0.0-0.5)
[2020-03-27 17:07] LABS: POTASSIUM 4.3 mmol/L (3.5-5.1)
[2020-03-27 17:08] LABS: CALCIUM 9.4 mg/dL (8.3-10.5)
== END ==
LOC: LAB 14:26
PROVIDERS: Family Medicine
DX: E78.2 Mixed hyperlipidemia (principal); I10 Essential (primary) hypertension

== ENCOUNTER → 2020-04-20 | Outpatient (CLI) | payer MEDICARE, OTHER ==
[~2020-04-20] MED LIST changes: +CEPHALEXIN250 MG PO; +CRANBERRY500 M3 PO; +NEIGHBOR PO; +VITAMIN C500 M6 PO
[2020-04-20 17:10] LABS: HEMATOCRIT 44.4 % (42.0-52.0); HEMOGLOBIN 14.7 g/dL (13.5-18.0); MEAN PLATELET VOLUME 8.9 fl (7.4-10.4); RED BLOOD COUNT 4.68 M/mm3 (4.20-5.60); RED CELL DISTRIBUTION WIDTH 13.4 % (11.5-14.5); WHITE BLOOD COUNT 6.1 K/mm3 (4.8-10.8)
[2020-04-20 17:17] LABS: ALBUMIN 4.3 g/dL (3.4-4.8)
[2020-04-20 17:18] LABS: POTASSIUM 4.1 mmol/L (3.5-5.1)
[2020-04-20 17:19] LABS: CALCIUM 9.2 mg/dL (8.3-10.5)
[2020-04-20 17:20] LABS: TOTAL PROTEIN 8.1 g/dL (6.2-8.1)
[2020-04-20 17:22] LABS: TOTAL BILIRUBIN 0.4 mg/dL (0.2-1.2)
[2020-04-20 17:26] LABS: MAGNESIUM 1.82 mg/dL (1.60-2.60)
== END ==
LOC: LAB 16:55
PROVIDERS: Family Medicine
DX: R53.1 Weakness (principal); R53.83 Other fatigue; R63.0 Anorexia

== ENCOUNTER 2020-04-23 10:38 | Emergency (ER) | payer MEDICARE, OTHER ==
[~2020-04-23] VITALS: Ht 167.6 cm; Wt 113.6 kg
[~2020-04-23 10:38] MED LIST changes: -CEPHALEXIN250 MG PO; -CRANBERRY500 M3 PO; -NEIGHBOR PO; -VITAMIN C500 M6 PO
[2020-04-23] MEDS ORDERED: CEPHALEXIN250 MG PO (11:04)
[2020-04-23] MEDS ORDERED: VITAMIN C500 M6 PO (11:08)
[2020-04-23] MEDS ORDERED: CRANBERRY500 M3 PO (11:09)
[2020-04-23] MEDS ORDERED: NEIGHBOR PO (11:10)
[2020-04-23 11:29] LABS: EOS # 0.2 (0.04-0.40); EOS % 2.7 % (0.0-4.0); HEMATOCRIT 44.6 % (42.0-52.0); HEMOGLOBIN 15.2 g/dL (13.5-18.0); LYMPH# 1.9 (1.50-4.00); MEAN CELL VOLUME 94 fl (78-100); MEAN CORPUSCULAR HEMOGLOBIN 32 pg (27-31); MEAN CORPUSCULAR HGB CONC 34 g/dL (33-37); MEAN PLATELET VOLUME 8.8 fl (7.4-10.4); MONO # 0.6 (0.20-0.80); NEU # 4.7 (1.40-6.50); PLATELET COUNT 182 K/mm3 (130-400); RED BLOOD COUNT 4.77 M/mm3 (4.20-5.60); RED CELL DISTRIBUTION WIDTH 13.2 % (11.5-14.5); WHITE BLOOD COUNT 7.4 K/mm3 (4.8-10.8)
[2020-04-23 12:55] LABS: URINE APPEARANCE CLEAR; URINE BILIRUBIN NEGATIVE (NEGATIVE); URINE BLOOD TRACE (NEGATIVE); URINE COLOR YELLOW; URINE GLUCOSE NEGATIVE (NEGATIVE); URINE KETONE NEGATIVE (NEGATIVE); URINE LEUKOCYTE ESTERASE TRACE (NEGATIVE); URINE NITRATE NEGATIVE (NEGATIVE); URINE PROTEIN(semi-quant) 1+ mg/dL (NEGATIVE); URINE UROBILINOGEN NORMAL (NORMAL); URINE WBC 16-30 /hpf (0-3)
[2020-04-23 16:57] VITALS: BP 143/67
== END 2020-04-23 16:55 | disposition home or self-care (01) ==
LOC: ED 10:38
PROVIDERS: Family Medicine
DX: E86.9 Volume depletion, unspecified (principal); G20 Parkinson's disease; F02.80 Dementia in other diseases classified elsewhere, unspecified severity, without behavioral disturbance, psychotic disturbance, mood disturbance, and anxiety; N39.0 Urinary tract infection, site not specified; Z86.79 Personal history of other diseases of the circulatory system
CPT/HCPCS: J7030

== ENCOUNTER → 2020-05-12 | Outpatient (CLI) | payer MEDICARE, OTHER ==
[2020-04-23 16:57] VITALS: BP 143/67
[~2020-05-12] MED LIST changes: +CEPHALEXIN250 MG PO; +CRANBERRY500 M3 PO; +NEIGHBOR PO; +VITAMIN C500 M6 PO
[2020-05-12 16:08] LABS: URINE APPEARANCE HAZY; URINE BILIRUBIN NEGATIVE (NEGATIVE); URINE BLOOD NEGATIVE (NEGATIVE); URINE COLOR YELLOW; URINE GLUCOSE NEGATIVE (NEGATIVE); URINE KETONE NEGATIVE (NEGATIVE); URINE LEUKOCYTE ESTERASE NEGATIVE (NEGATIVE); URINE NITRATE NEGATIVE (NEGATIVE); URINE PROTEIN(semi-quant) 1+ mg/dL (NEGATIVE); URINE UROBILINOGEN NORMAL (NORMAL)
[2020-05-12 16:10] LABS: URINE MUCUS PRESENT (NOT PRESENT)
== END ==
LOC: LAB 15:03
PROVIDERS: Urology
DX: N39.41 Urge incontinence (principal)

== ENCOUNTER → 2020-09-13 | Outpatient (CLI) | payer MEDICARE, OTHER ==
[~2020-09-13] MED LIST changes: +CEFDINIR300 MG PO
[2020-09-13 16:22] LABS: POTASSIUM 4.3 mmol/L (3.5-5.1)
[2020-09-13 16:23] LABS: CALCIUM 9.2 mg/dL (8.3-10.5)
== END ==
LOC: LAB 15:12
PROVIDERS: Internal Medicine Nephrology
DX: I12.9 Hypertensive chronic kidney disease with stage 1 through stage 4 chronic kidney disease, or unspecified chronic kidney disease (principal); N18.4 Chronic kidney disease, stage 4 (severe)

== ENCOUNTER → 2020-11-27 | Outpatient (CLI) | payer MEDICARE, OTHER ==
[2020-11-27 14:50] LABS: URINE APPEARANCE HAZY; URINE BILIRUBIN NEGATIVE (NEGATIVE); URINE BLOOD NEGATIVE (NEGATIVE); URINE COLOR YELLOW; URINE GLUCOSE NEGATIVE (NEGATIVE); URINE KETONE NEGATIVE (NEGATIVE); URINE LEUKOCYTE ESTERASE 2+ (NEGATIVE); URINE NITRATE NEGATIVE (NEGATIVE); URINE PROTEIN(semi-quant) 1+ mg/dL (NEGATIVE); URINE UROBILINOGEN NORMAL (NORMAL); URINE WBC >50 /hpf (0-3)
[2020-11-27 14:51] LABS: URINE MUCUS PRESENT (NOT PRESENT)
== END ==
LOC: LAB 13:00
PROVIDERS: Family Medicine
DX: N39.498 Other specified urinary incontinence (principal)

== ENCOUNTER → 2020-11-29 | Outpatient (CLI) | payer MEDICARE, OTHER ==
[2020-11-29 12:20] LABS: ALBUMIN 3.9 g/dL (3.4-4.8)
[2020-11-29 12:21] LABS: POTASSIUM 3.6 mmol/L (3.5-5.1); SODIUM 143 mmol/L (136-145)
[2020-11-29 12:22] LABS: CALCIUM 9.1 mg/dL (8.3-10.5)
[2020-11-29 12:23] LABS: GLUCOSE 117 mg/dL (75-110); TOTAL PROTEIN 7.2 g/dL (6.2-8.1)
[2020-11-29 12:24] LABS: CARBON DIOXIDE 23 mmol/L (23-31)
[2020-11-29 12:25] LABS: TOTAL BILIRUBIN 0.4 mg/dL (0.2-1.2)
[2020-11-29 12:28] LABS: AST-SGOT 15 U/L (5-34)
[2020-11-29 12:33] LABS: ALT/SGPT < 6 U/L (0-55)
[2020-11-29 13:05] LABS: URINE APPEARANCE CLOUDY; URINE BILIRUBIN NEGATIVE (NEGATIVE); URINE BLOOD TRACE (NEGATIVE); URINE COLOR DARK YELLOW; URINE GLUCOSE NEGATIVE (NEGATIVE); URINE KETONE SMALL (NEGATIVE); URINE LEUKOCYTE ESTERASE 2+ (NEGATIVE); URINE NITRATE NEGATIVE (NEGATIVE); URINE PROTEIN(semi-quant) 2+ mg/dL (NEGATIVE); URINE UROBILINOGEN NORMAL (NORMAL); URINE WBC >50 /hpf (0-3)
[2020-11-29 13:06] LABS: URINE MUCUS PRESENT (NOT PRESENT)
[2020-11-29 13:22] LABS: BASO # 0.02 (0.02-0.10); EOS # 0.17 (0.04-0.40); EOS % 2.1 % (0.0-4.0); HEMATOCRIT 41.9 % (42.0-52.0); HEMOGLOBIN 14.4 g/dL (13.5-18.0); LYMPH# 1.43 (1.50-4.00); MEAN CELL VOLUME 92 fl (78-100); MEAN CORPUSCULAR HEMOGLOBIN 32 pg (27-31); MEAN CORPUSCULAR HGB CONC 34 g/dL (33-37); NEU # 5.79 (1.40-6.50); PLATELET COUNT 191 K/mm3 (130-400); RED BLOOD COUNT 4.56 M/mm3 (4.20-5.60); RED CELL DISTRIBUTION WIDTH 13.4 % (11.5-14.5); WHITE BLOOD COUNT 8.1 K/mm3 (4.8-10.8)
== END ==
LOC: LAB 11:58
PROVIDERS: Family Medicine
DX: I10 Essential (primary) hypertension (principal); R82.998 Other abnormal findings in urine; R73.9 Hyperglycemia, unspecified

== ENCOUNTER 2021-03-29 11:48 | Observation (INO) | payer MEDICARE, OTHER ==
[~2021-03-29] VITALS: Ht 167.6 cm; Wt 84.8 kg
[~2021-03-29 11:48] MED LIST changes: -CEFDINIR300 MG PO
[2021-03-29] MEDS ORDERED: QUETIAPINE FUMA25 M3 PO (12:09)
[2021-03-29 12:37] LABS: HEMATOCRIT 38.8 % (42.0-52.0); HEMOGLOBIN 13.2 g/dL (13.5-18.0); MEAN CELL VOLUME 92 fl (78-100); MEAN CORPUSCULAR HEMOGLOBIN 31 pg (27-31); MEAN CORPUSCULAR HGB CONC 34 g/dL (33-37); PLATELET COUNT 149 K/mm3 (130-400); RED BLOOD COUNT 4.24 M/mm3 (4.20-5.60); RED CELL DISTRIBUTION WIDTH 12.6 % (11.5-14.5)
[2021-03-29 12:50] LABS: ALBUMIN 3.3 g/dL (3.4-4.8)
[2021-03-29 12:51] LABS: POTASSIUM 3.5 mmol/L (3.5-5.1)
[2021-03-29 12:52] LABS: CALCIUM 9.4 mg/dL (8.3-10.5)
[2021-03-29 12:53] LABS: TOTAL PROTEIN 6.9 g/dL (6.2-8.1)
[2021-03-29 12:55] LABS: TOTAL BILIRUBIN 0.8 mg/dL (0.2-1.2)
[2021-03-29] MEDS ORDERED: CEPHALEXIN500 M1 PO (13:30)
[2021-03-29] MEDS ORDERED: CEPHALEXIN250 MG PO (13:30)
[2021-03-29 13:44] LABS: URINE APPEARANCE CLOUDY; URINE BILIRUBIN NEGATIVE (NEGATIVE); URINE BLOOD 250 ery/uL (NEGATIVE); URINE COLOR DARK YELLOW; URINE GLUCOSE NEGATIVE (NEGATIVE); URINE KETONE TR (NEGATIVE); URINE LEUKOCYTE ESTERASE 2+ (NEGATIVE); URINE NITRATE POSITIVE (NEGATIVE); URINE PROTEIN(semi-quant) 2+ mg/dL (NEGATIVE); URINE UROBILINOGEN NORMAL (NORMAL); URINE WBC >50 /hpf (0-3)
[2021-03-29 13:56] LABS: BAND 2 % (0-10)
[2021-03-29 13:57] LABS: LYMPHOCYTE 8 % (20-51); MONOCYTE 3 % (3-10); NEUTROPHILS 87 % (42-75)
[2021-03-29 17:44] VITALS: BP 175/98
[2021-03-29 22:18] VITALS: BP 128/68
[2021-03-30 02:03] VITALS: BP 129/66
[2021-03-30 05:10] LABS: BASO # 0.01 K/mm3 (0.02-0.10); EOS # 0.06 K/mm3 (0.04-0.40); EOS % 1.4 % (0.0-4.0); HEMATOCRIT 34.6 % (42.0-52.0); HEMOGLOBIN 11.8 g/dL (13.5-18.0); LYMPH# 0.72 K/mm3 (1.50-4.00); MEAN CELL VOLUME 92 fl (78-100); MEAN CORPUSCULAR HEMOGLOBIN 32 pg (27-31); MEAN CORPUSCULAR HGB CONC 34 g/dL (33-37); MONO # 0.33 K/mm3 (0.20-0.80); NEU # 3.22 K/mm3 (1.40-6.50); PLATELET COUNT 133 K/mm3 (130-400); RED BLOOD COUNT 3.75 M/mm3 (4.20-5.60); RED CELL DISTRIBUTION WIDTH 12.7 % (11.5-14.5); WHITE BLOOD COUNT 4.4 K/mm3 (4.8-10.8)
[2021-03-30 05:19] LABS: POTASSIUM 3.3 mmol/L (3.5-5.1)
[2021-03-30 05:20] LABS: CALCIUM 8.9 mg/dL (8.3-10.5)
[2021-03-30 05:37] VITALS: BP 133/68
[2021-03-30 09:40] VITALS: BP 158/76
[2021-03-30 14:20] VITALS: BP 145/69
[2021-03-30 18:17] VITALS: BP 134/70
[2021-03-30 21:32] VITALS: BP 166/69
[2021-03-31 02:51] VITALS: BP 157/71
[2021-03-31 06:00] VITALS: BP 134/70
[2021-03-31 09:33] VITALS: BP 134/67
[2021-03-31 09:42] LABS: BASO # 0.01 K/mm3 (0.02-0.10); EOS # 0.14 K/mm3 (0.04-0.40); EOS % 3.1 % (0.0-4.0); HEMATOCRIT 37.5 % (42.0-52.0); HEMOGLOBIN 12.8 g/dL (13.5-18.0); LYMPH# 1.15 K/mm3 (1.50-4.00); MEAN CELL VOLUME 92 fl (78-100); MEAN CORPUSCULAR HEMOGLOBIN 31 pg (27-31); MEAN CORPUSCULAR HGB CONC 34 g/dL (33-37); MEAN PLATELET VOLUME 9.2 fl (7.4-10.4); MONO # 0.38 K/mm3 (0.20-0.80); NEU # 2.84 K/mm3 (1.40-6.50); PLATELET COUNT 171 K/mm3 (130-400); RED BLOOD COUNT 4.07 M/mm3 (4.20-5.60); RED CELL DISTRIBUTION WIDTH 12.8 % (11.5-14.5); WHITE BLOOD COUNT 4.6 K/mm3 (4.8-10.8)
[2021-03-31 09:54] LABS: ALBUMIN 3.2 g/dL (3.4-4.8); POTASSIUM 3.2 mmol/L (3.5-5.1)
[2021-03-31 09:55] LABS: CALCIUM 9.1 mg/dL (8.3-10.5)
[2021-03-31 09:57] LABS: TOTAL PROTEIN 6.6 g/dL (6.2-8.1)
[2021-03-31 09:58] LABS: TOTAL BILIRUBIN 0.4 mg/dL (0.2-1.2)
[2021-03-31 14:15] VITALS: BP 124/69
[2021-03-31 17:14] VITALS: BP 153/77
[2021-03-31 21:57] VITALS: BP 123/56
[2021-04-01 01:21] VITALS: BP 152/71
[2021-04-01 05:55] VITALS: BP 136/69
[2021-04-01 09:00] LABS: BASO # 0.02 K/mm3 (0.02-0.10); EOS # 0.24 K/mm3 (0.04-0.40); EOS % 5.2 % (0.0-4.0); HEMATOCRIT 37.3 % (42.0-52.0); HEMOGLOBIN 12.4 g/dL (13.5-18.0); LYMPH# 1.36 K/mm3 (1.50-4.00); MEAN CELL VOLUME 93 fl (78-100); MEAN CORPUSCULAR HEMOGLOBIN 31 pg (27-31); MEAN CORPUSCULAR HGB CONC 33 g/dL (33-37); MEAN PLATELET VOLUME 8.9 fl (7.4-10.4); NEU # 2.51 K/mm3 (1.40-6.50); PLATELET COUNT 178 K/mm3 (130-400); RED BLOOD COUNT 4.03 M/mm3 (4.20-5.60); RED CELL DISTRIBUTION WIDTH 12.7 % (11.5-14.5); WHITE BLOOD COUNT 4.6 K/mm3 (4.8-10.8)
[2021-04-01 09:09] LABS: ALBUMIN 3.2 g/dL (3.4-4.8); POTASSIUM 3.9 mmol/L (3.5-5.1); SODIUM 140 mmol/L (136-145)
[2021-04-01 09:11] LABS: CALCIUM 9.2 mg/dL (8.3-10.5)
[2021-04-01 09:12] LABS: GLUCOSE 123 mg/dL (75-110); TOTAL PROTEIN 6.6 g/dL (6.2-8.1)
[2021-04-01 09:13] LABS: CARBON DIOXIDE 21 mmol/L (23-31)
[2021-04-01 09:14] LABS: TOTAL BILIRUBIN 0.4 mg/dL (0.2-1.2)
[2021-04-01 09:17] LABS: AST-SGOT 26 U/L (5-34)
[2021-04-01 09:53] VITALS: BP 129/73
[2021-04-01 09:57] LABS: ALT/SGPT < 6 U/L (0-55)
[2021-04-01] MEDS ORDERED: CEFDINIR300 MG PO (10:17)
== END 2021-04-01 10:57 | disposition home or self-care (01) ==
LOC: ED 11:48 → MED/SURG 14:34
PROVIDERS: Physician Assistant; ADMIT Physician Assistant
DX: N39.0 Urinary tract infection, site not specified (principal); R53.81 Other malaise; G20 Parkinson's disease; F02.80 Dementia in other diseases classified elsewhere, unspecified severity, without behavioral disturbance, psychotic disturbance, mood disturbance, and anxiety; I12.9 Hypertensive chronic kidney disease with stage 1 through stage 4 chronic kidney disease, or unspecified chronic kidney disease; I73.9 Peripheral vascular disease, unspecified; N18.30 Chronic kidney disease, stage 3 unspecified; J44.9 Chronic obstructive pulmonary disease, unspecified; K21.9 Gastro-esophageal reflux disease without esophagitis; G47.00 Insomnia, unspecified; E78.49 Other hyperlipidemia; M19.90 Unspecified osteoarthritis, unspecified site; G47.30 Sleep apnea, unspecified; M48.061 Spinal stenosis, lumbar region without neurogenic claudication; F41.8 Other specified anxiety disorders; Z85.828 Personal history of other malignant neoplasm of skin; Z79.82 Long term (current) use of aspirin; Z79.899 Other long term (current) drug therapy; Z87.891 Personal history of nicotine dependence
CPT/HCPCS: A4340; G0378; J0696; J1650; J7030

== ENCOUNTER 2021-05-29 11:33 | Emergency (ER) | payer MEDICARE, OTHER ==
[~2021-05-29 11:33] MED LIST changes: +CEFDINIR300 MG PO; -VITAMIN D32000 IU PO; +VITAMIN D350 MC4 PO
[2021-05-29] MEDS ORDERED: CEPHALEXIN250 MG PO (11:55)
[2021-05-29] MEDS ORDERED: IMODIUM A-D2 M2 PO (11:57)
[2021-05-29 12:18] LABS: BASO # 0.02 K/mm3 (0.02-0.10); EOS # 0.16 K/mm3 (0.04-0.40); EOS % 1.9 % (0.0-4.0); HEMATOCRIT 41.3 % (42.0-52.0); HEMOGLOBIN 13.8 g/dL (13.5-18.0); LYMPH# 1.64 K/mm3 (1.50-4.00); MEAN CELL VOLUME 92 fl (78-100); MEAN CORPUSCULAR HEMOGLOBIN 31 pg (27-31); MEAN CORPUSCULAR HGB CONC 33 g/dL (33-37); MEAN PLATELET VOLUME 8.7 fl (7.4-10.4); MONO # 0.65 K/mm3 (0.20-0.80); NEU # 5.79 K/mm3 (1.40-6.50); PLATELET COUNT 139 K/mm3 (130-400); RED BLOOD COUNT 4.47 M/mm3 (4.20-5.60); RED CELL DISTRIBUTION WIDTH 13.6 % (11.5-14.5); WHITE BLOOD COUNT 8.3 K/mm3 (4.8-10.8)
[2021-05-29 12:28] LABS: ALBUMIN 3.8 g/dL (3.4-4.8); POTASSIUM 4.2 mmol/L (3.5-5.1)
[2021-05-29 12:29] LABS: CALCIUM 9.1 mg/dL (8.3-10.5)
[2021-05-29 12:31] LABS: TOTAL PROTEIN 7.2 g/dL (6.2-8.1)
[2021-05-29 12:32] LABS: TOTAL BILIRUBIN 0.5 mg/dL (0.2-1.2)
[2021-05-29 15:01] LABS: URINE APPEARANCE CLEAR; URINE COLOR YELLOW; URINE PROTEIN(semi-quant) 1+ mg/dL (NEGATIVE)
[2021-05-29 15:02] LABS: URINE BILIRUBIN NEGATIVE (NEGATIVE); URINE BLOOD TRACE (NEGATIVE); URINE GLUCOSE NEGATIVE (NEGATIVE); URINE KETONE NEGATIVE (NEGATIVE); URINE LEUKOCYTE ESTERASE NEGATIVE (NEGATIVE); URINE NITRATE NEGATIVE (NEGATIVE); URINE UROBILINOGEN NORMAL (NORMAL)
[2021-05-29] MEDS ORDERED: MORGIDOX 1X100100 MG PO (15:13)
[2021-05-29 15:27] VITALS: BP 117/64
== END 2021-05-29 15:28 | disposition home or self-care (01) ==
LOC: ED 11:33
PROVIDERS: Nurse Practitioner
DX: J44.9 Chronic obstructive pulmonary disease, unspecified (principal); I12.9 Hypertensive chronic kidney disease with stage 1 through stage 4 chronic kidney disease, or unspecified chronic kidney disease; N18.30 Chronic kidney disease, stage 3 unspecified; F03.90 Unspecified dementia, unspecified severity, without behavioral disturbance, psychotic disturbance, mood disturbance, and anxiety; K21.9 Gastro-esophageal reflux disease without esophagitis; G47.00 Insomnia, unspecified; F41.9 Anxiety disorder, unspecified; F32.A Depression, unspecified; E66.9 Obesity, unspecified; Z20.822 Contact with and (suspected) exposure to COVID-19; Z79.82 Long term (current) use of aspirin; Z79.899 Other long term (current) drug therapy
CPT/HCPCS: A4340

== ENCOUNTER 2021-07-04 10:55 | Emergency (ER) | payer MEDICARE, OTHER ==
[~2021-07-04] VITALS: Wt 85.8 kg
[~2021-07-04 10:55] MED LIST changes: +IMODIUM A-D2 M2 PO; +MORGIDOX 1X100100 MG PO
[2021-07-04 11:26] LABS: BASO # 0.02 K/mm3 (0.02-0.10); EOS # 0.26 K/mm3 (0.04-0.40); EOS % 1.9 % (0.0-4.0); HEMATOCRIT 40.3 % (42.0-52.0); HEMOGLOBIN 13.4 g/dL (13.5-18.0); LYMPH# 1.76 K/mm3 (1.50-4.00); MEAN CELL VOLUME 91 fl (78-100); MEAN CORPUSCULAR HEMOGLOBIN 30 pg (27-31); MEAN CORPUSCULAR HGB CONC 33 g/dL (33-37); MEAN PLATELET VOLUME 8.8 fl (7.4-10.4); MONO # 0.48 K/mm3 (0.20-0.80); NEU # 10.81 K/mm3 (1.40-6.50); PLATELET COUNT 192 K/mm3 (130-400); RED BLOOD COUNT 4.42 M/mm3 (4.20-5.60); RED CELL DISTRIBUTION WIDTH 14.3 % (11.5-14.5); WHITE BLOOD COUNT 13.4 K/mm3 (4.8-10.8)
[2021-07-04 11:31] LABS: ALBUMIN 3.6 g/dL (3.4-4.8); POTASSIUM 3.9 mmol/L (3.5-5.1); SODIUM 143 mmol/L (136-145)
[2021-07-04 11:32] LABS: CALCIUM 9.4 mg/dL (8.3-10.5)
[2021-07-04 11:33] LABS: GLUCOSE 156 mg/dL (75-110)
[2021-07-04 11:34] LABS: TOTAL PROTEIN 7.2 g/dL (6.2-8.1)
[2021-07-04 11:35] LABS: CARBON DIOXIDE 22 mmol/L (23-31); TOTAL BILIRUBIN 0.5 mg/dL (0.2-1.2)
[2021-07-04 11:39] LABS: AST-SGOT 10 U/L (5-34)
[2021-07-04 11:49] LABS: ALT/SGPT < 6 U/L (0-55); TROPONIN-I < 0.030 ng/mL (<0.030)
[2021-07-04 15:10] LABS: URINE APPEARANCE CLOUDY; URINE BILIRUBIN 1+ (NEGATIVE); URINE BLOOD 250 ery/uL (NEGATIVE); URINE COLOR YELLOW; URINE GLUCOSE NEGATIVE (NEGATIVE); URINE KETONE NEGATIVE (NEGATIVE); URINE NITRATE POSITIVE (NEGATIVE); URINE PROTEIN(semi-quant) 3+ (NEGATIVE); URINE UROBILINOGEN NORMAL (NORMAL)
[2021-07-04 15:11] LABS: URINE LEUKOCYTE ESTERASE 2+ (NEGATIVE)
[2021-07-04 15:32] VITALS: BP 140/68
== END 2021-07-04 16:42 | disposition other institution (70) ==
LOC: ED 10:55
PROVIDERS: Physician Assistant
DX: N39.0 Urinary tract infection, site not specified (principal); D72.829 Elevated white blood cell count, unspecified; E86.0 Dehydration; J40 Bronchitis, not specified as acute or chronic; G20 Parkinson's disease; F02.80 Dementia in other diseases classified elsewhere, unspecified severity, without behavioral disturbance, psychotic disturbance, mood disturbance, and anxiety; N18.9 Chronic kidney disease, unspecified; Z20.822 Contact with and (suspected) exposure to COVID-19; Z79.899 Other long term (current) drug therapy
CPT/HCPCS: J0696; J7030

== ENCOUNTER 2021-07-04 15:05 | Inpatient (IN) | payer MEDICARE, OTHER ==
[~2021-07-04] VITALS: Ht 167.6 cm; Wt 80.3 kg
--- NOTE | 2021-07-04 16:59 | NUR ---
PATIENT LIVES AT HOME WITH ; SHE PROVIDES A LARGE PORTION OF HIS CARE. HAS BEEN PREOCCUPIED WITH DAUGHTER WHO IS CURRENTLY RECOVERING IN A [facility] FROM A SIGNIFICANT INJURY. THIS HAS LEFT THE PATIENT AT HOME ALONE MORE FREQUENTLY. THIS DAUGHTER IS ALSO BACK UP CARE PROVIDER FOR WHEN IS RUNNING ERRANDS. CURRENTLY, PATIENT IS ALERT AND ORIENTED. OXYGEN IN PLACE AT 2LPM VIA NC.
[2021-07-04 17:41] VITALS: BP 165/52
--- NOTE | 2021-07-04 19:20 | NUR ---
REPORT PROVIDED TO AFRICA MCKINNEY.
--- NOTE | 2021-07-04 20:50 | NUR ---
Report received at shift change from Sakina KAPADIA. Patient resting in bed with IVF infusing at 125 ML/HR. Site patent to [facility]. Patient is lethargic but oriented x4. Hot to touch. Temp 102.8 Ax. Reported to Beverly FLOREZ. Oxygen in place at 2L/NC. Denies pain, denies SOA. Assessment completed. Takes HS medications whole without difficutly. Drinking PO fluids well with assist. Requested and drank 8 oz of Cranberry juice. Incontinent of urine. Staff in to change and provide cares. Repositioned by staff. Bed alarm on. Call light in reach.
[2021-07-04 22:42] VITALS: BP 158/65
--- NOTE | 2021-07-05 01:10 | NUR ---
Temperature 102.1. Tylenol given PO. Drand 8 oz of Grape juice. Incontinent of urine. Pericares and brief change by staff. Barrier cream to scrotum and buttocks. Remains A/O but weak and lethargic. Denies pain.
[2021-07-05 01:43] VITALS: BP 115/53
--- NOTE | 2021-07-05 05:46 | NUR ---
Continues to be febrile. Tylenol taken. Continues to drink fluids well when offered but now holding in mouth and needing prompted to swallow. Asked patient if it hurts to swallow or is hard to swallow. States hard to swallow. Continue to monitor.
[2021-07-05 06:07] VITALS: BP 110/50
--- NOTE | 2021-07-05 07:05 | NUR ---
Report to Rica KAPADIA.
[2021-07-05 07:15] LABS: POTASSIUM 3.5 mmol/L (3.5-5.1)
[2021-07-05 07:16] LABS: CALCIUM 8.1 mg/dL (8.3-10.5)
[2021-07-05 07:20] LABS: HEMATOCRIT 33.4 % (42.0-52.0); HEMOGLOBIN 10.9 g/dL (13.5-18.0); MEAN CELL VOLUME 93 fl (78-100); MEAN CORPUSCULAR HEMOGLOBIN 30 pg (27-31); MEAN CORPUSCULAR HGB CONC 33 g/dL (33-37); PLATELET COUNT 150 K/mm3 (130-400); RED CELL DISTRIBUTION WIDTH 15.1 % (11.5-14.5); WHITE BLOOD COUNT 13.4 K/mm3 (4.8-10.8)
[2021-07-05 07:28] LABS: BAND 1 % (0-10); LYMPHOCYTE 5 % (20-51); MONOCYTE 5 % (3-10); NEUTROPHILS 89 % (42-75)
[2021-07-05 10:29] VITALS: BP 89/52
[2021-07-05 14:01] VITALS: BP 90/48
[2021-07-05 17:32] VITALS: BP 101/57
--- NOTE | 2021-07-05 19:06 | NUR ---
Report given to HANK Jones.
--- NOTE | 2021-07-05 19:45 | NUR ---
Report received from Rica KAPADIA. Patient resting in bed, watching TV. Patient is alert, talkative and oriented x4. Denies pain. Oxygen in place at 2L/NC. Denies SOA. Has occasional NPC. Requesting something to drink. HS medications taken crushed in applesauce, and nectar thick cranberry juice. Drank all 4 oz and swallowed readily without noted coughing, choking or holding in his mouth. Incontinent of bowel and bladder. Tara/rectal cares provided. Up to recliner with 2 staff, and all linens changed. Assisted back to bed. Positioned for comfort and assessment done. Requesting "water". Drank 8 oz of nectar thick water without difficulty. Bed alarm on. Call light in reach.
[2021-07-05 21:54] VITALS: BP 116/63
--- NOTE | 2021-07-06 00:51 | NUR ---
Incontinent of B&B. Brief changed, pericares provided. Patient with gurgling in back of throat. Unable to expell with cough. Oral suction provided with moderate amount of thick phelm noted. HOB elevated high fowlers.
[2021-07-06 01:40] VITALS: BP 128/63
--- NOTE | 2021-07-06 03:29 | NUR ---
Called provider to report incerased coughing and secretions. Pt is requiring suction several times this shift. Weight has increased 4.8lbs since admission on the . Pt has NS @ 125ml/hr and has been at that rate since admission. Recived orders to stop runnning fluids at this time.
--- NOTE | 2021-07-06 05:14 | NUR ---
Oxygen level 87% on 2L/NC. Mouth and throat suctioned. Patient instructed to take deep breaths through nose. SAO2 did not increase. Patient moved up in bed and oxygen increased to 4L/NC. SAO2 94% . HOB elevated high fowlers.
[2021-07-06 05:53] VITALS: BP 149/65
--- NOTE | 2021-07-06 06:38 | NUR ---
Continues to have gurgling secrections in back of throat. Unable to expell on his own. Suctioned moderate amount of thick phelem from posterior throat and mouth. HOB high fowlers position. Oxygen at 4L/NC.
--- NOTE | 2021-07-06 07:00 | NUR ---
REPORT RECEIVED FROM HANK LEGER.
--- NOTE | 2021-07-06 07:16 | NUR ---
[facility]
--- NOTE | 2021-07-06 08:00 | NUR ---
NURSE NOTIFED PATIENT FEBRILE. PROVIDER CONTACTED AND AWARE.
[2021-07-06 10:01] VITALS: BP 147/73
--- NOTE | 2021-07-06 10:01 | NUR ---
Pt's assigned nurse, Avila notified that pt's temp remains elevated at 100.6 axillary.
--- NOTE | 2021-07-06 11:00 | NUR ---
DR BATES IN TO SEE PATIENT.
[2021-07-06 11:30] LABS: BASO # 0.02 K/mm3 (0.02-0.10); EOS # 0.05 K/mm3 (0.04-0.40); EOS % 0.7 % (0.0-4.0); HEMATOCRIT 33.1 % (42.0-52.0); HEMOGLOBIN 11.1 g/dL (13.5-18.0); MEAN CELL VOLUME 91 fl (78-100); MEAN CORPUSCULAR HEMOGLOBIN 31 pg (27-31); MEAN CORPUSCULAR HGB CONC 34 g/dL (33-37); MEAN PLATELET VOLUME 9.1 fl (7.4-10.4); MONO # 0.25 K/mm3 (0.20-0.80); NEU # 5.96 K/mm3 (1.40-6.50); PLATELET COUNT 119 K/mm3 (130-400); RED BLOOD COUNT 3.63 M/mm3 (4.20-5.60); RED CELL DISTRIBUTION WIDTH 14.9 % (11.5-14.5); WHITE BLOOD COUNT 7.2 K/mm3 (4.8-10.8)
[2021-07-06 11:36] LABS: ALBUMIN 2.9 g/dL (3.4-4.8); POTASSIUM 3.3 mmol/L (3.5-5.1)
[2021-07-06 11:37] LABS: CALCIUM 8.3 mg/dL (8.3-10.5)
[2021-07-06 11:38] LABS: TOTAL PROTEIN 5.9 g/dL (6.2-8.1)
[2021-07-06 11:40] LABS: TOTAL BILIRUBIN 0.4 mg/dL (0.2-1.2)
--- NOTE | 2021-07-06 12:05 | NUR ---
Corrine Sol, AUT[employer] CLAIM REPRESENTATIVE notified of critical BNP of 1171.
--- NOTE | 2021-07-06 13:30 | NUR ---
PATIENT MOVED FROM ROOM 204 TO ROOM 302.
[2021-07-06 14:10] VITALS: BP 110/76
--- NOTE | 2021-07-06 15:19 | NUR ---
Pt is moved to room 302. pt given bed bath and provided carey care at this time. pt tolerates this well. Linens are changed on pt's bed and an air mattress is applied. pt's sacrum noted to be red but blanchable. a pressure reducing mepilex dressing is applied. pt is positioned on right side and denies any complaints or pain at this time.
--- NOTE | 2021-07-06 16:55 | NUR ---
REPORT GIVEN TO HANK LEGER.
[2021-07-06 18:10] VITALS: BP 147/75
--- NOTE | 2021-07-06 19:00 | NUR ---
Report received from Cinthia MCKINNEY.
--- NOTE | 2021-07-06 19:03 | NUR ---
Report to Charlene KAPADIA.
--- NOTE | 2021-07-06 20:30 | NUR ---
Hs meds given crushed in applesauce. Patient has frequent moist couph and oral suctioning provided with small amount light yellow sticky sputum noted. Patient alert to self, month and place, not year or time of day.
--- NOTE | 2021-07-06 22:10 | NUR ---
Patients respirations 36 with accessory muscles in use. Moist couph. Suctioned moderate amount of white phlemn. Sao2 93% on 5lpnc. Audible moist lung sounds and expiratory wheezing. Vitals and above reported to Dr. Bello and new orders received. Lasix 40mg given SIV and breathing treatment reviewed and given. IVF's stopped.
[2021-07-06 22:14] VITALS: BP 145/65
--- NOTE | 2021-07-06 23:31 | NUR ---
Patient now calmed. Respirations not audibly moist at this time. Respirations 32. Sao2 85% on 5 lpnc and simple mask applied at 10 L and sats 88% Dr. Bello notified and reported BP of 144/70.
[2021-07-07] VITALS (7 sets, daily range): BP systolic 95–144; BP diastolic 54–89
--- NOTE | 2021-07-07 | NUR ---
New orders received per Dr. Bello and lasix 20mg IV and nitropaste given. Patient incontinent of medium soft stool and moderate amount of urine and changed. Sao2 remains at 88% per simple mask. Temp 100.5 and tylenol suppository given.
--- NOTE | 2021-07-07 01:20 | NUR ---
Called Dr. Bello with patients vitals and o2 on 10L per simple mask and sats 90%, temp 102.2. Reviewed gave patient tylenol suppository at 0020. New orders received and motrin 400mg given po thickened with nectar thickener. Swallowed without problems and instructed to swallow twice.
--- NOTE | 2021-07-07 04:19 | NUR ---
Patient incontinent large amount of urine and changed. See vitals. Temp 99.9 sao2 93-94% on 8L per simple mask.
--- NOTE | 2021-07-07 06:52 | NUR ---
Patient resting with eyes closed. Continent of urine at this time.
[2021-07-07 07:52] LABS: BASO # 0.01 K/mm3 (0.02-0.10); EOS # 0.02 K/mm3 (0.04-0.40); EOS % 0.3 % (0.0-4.0); HEMOGLOBIN 11.4 g/dL (13.5-18.0); LYMPH# 1.38 K/mm3 (1.50-4.00); MEAN CELL VOLUME 88 fl (78-100); MEAN CORPUSCULAR HEMOGLOBIN 31 pg (27-31); MEAN CORPUSCULAR HGB CONC 35 g/dL (33-37); MEAN PLATELET VOLUME 9.3 fl (7.4-10.4); MONO # 0.47 K/mm3 (0.20-0.80); NEU # 6.05 K/mm3 (1.40-6.50); PLATELET COUNT 137 K/mm3 (130-400); RED BLOOD COUNT 3.74 M/mm3 (4.20-5.60); RED CELL DISTRIBUTION WIDTH 14.3 % (11.5-14.5)
--- NOTE | 2021-07-07 07:55 | NUR ---
Patient disoriented, hypoxic and congested. Suctioned clear, thin mucus by mouth. VS BP 96/58, O2 92% on 6L per NC, P78, RR28, T99.0, no c/o pain or discomfort. Fluids stopped running. Lab drawn. Incont care given x2 assist. Dr. Bello at bedside. See new orders.
[2021-07-07 08:08] LABS: POTASSIUM 3.2 mmol/L (3.5-5.1)
[2021-07-07 08:09] LABS: CALCIUM 8.5 mg/dL (8.3-10.5)
--- NOTE | 2021-07-07 08:48 | NUR ---
Dr Bello notified of critcal troponin and BNP and updated on pt status and vital signs
--- NOTE | 2021-07-07 19:00 | NUR ---
Report received from Barbara KAPADIA.
--- NOTE | 2021-07-07 19:45 | NUR ---
Patient rests in bed awake. Alert to self,place, month but not year. Respirations non labored at this time. Denies pain. Affect quiet. Incontinent of med loose orangish brown bm and changed and repositioned to left side. Barrier cream applied to buttucks. Hammond draining clear yellow urine.
[2021-07-08 02:10] VITALS: BP 128/69
[2021-07-08 05:39] VITALS: BP 120/67
[2021-07-08 09:48] LABS: POTASSIUM 3.3 mmol/L (3.5-5.1)
[2021-07-08 10:24] LABS: TROPONIN-I 6.425 ng/mL (<0.030)
[2021-07-08 10:27] VITALS: BP 125/67
--- NOTE | 2021-07-08 13:19 | NUR ---
Awake, alert & oriented with flat affect. Pt has denied discomfort when asked this shift thus far. Speech clear, soft. No facial drooping. No drift. Hand sensitizer equal. Assisting and supervising all oral intake, using nectar-thick liq. and pureed foods due to aspiration risk (failed Ba swallow), with HOB elevated at 90 degrees with intake. Pt understands use of call light, but rarely uses. Mobility alarm in use for patient safety. Hammond to DD with clear yellow urine; incont. of stool x2 this shift thus far. Moisture barrier to reddened area to buttocks and careful carey-anal care; repsitioning to sides when possible. Tele shows NSR, rate 80s primarily. Will check on patient on rounds.
[2021-07-08 14:21] VITALS: BP 122/66
[2021-07-08 17:47] VITALS: BP 116/68
--- NOTE | 2021-07-08 19:00 | NUR ---
Report received from Janene MCKINNEY.
--- NOTE | 2021-07-08 20:07 | NUR ---
Report given to oncoming shift nurseCharlene.
--- NOTE | 2021-07-08 20:30 | NUR ---
Patient resting in bed watching TV. Alert and oriented x4. Denies pain. States feels pretty good. "I'm ready to go home tomorrow". Explained providers are monitoring his labs, heart functioning and UTI and will reassess tomorrow. Explained importance of stabilizing all the above. Patient voices understanding. o2 on 5lpnc and sats 91%. Incontinent of large loose orangish colored stool and good carey-care done and barrier cream applied/atttends changed. Patient repositioned q 2-3hours from side to side.
[2021-07-08 22:30] VITALS: BP 120/68
[2021-07-09 02:04] VITALS: BP 138/75
--- NOTE | 2021-07-09 04:00 | NUR ---
Patient resting in bed awake at this time. Has bout of moist non-productive couph. States "feel fine". Incontinent large loose orang BM and good carey-care done followed by barrier cream and linen changed. Repositioned up in bed and onto left side. 02 on 4lpnc.
[2021-07-09 05:50] VITALS: BP 127/78
--- NOTE | 2021-07-09 09:19 | NUR ---
Patient sitting up in chair. A&Ox4, 4L per NC, no c/o pain or discomfort. Reports he is feeling a lot better today. Swallowed pills crushed in pudding. Chair in locked position. Call light within reach.
[2021-07-09 10:20] VITALS: BP 106/64
[2021-07-09 14:00] VITALS: BP 115/64
[2021-07-09 16:20] LABS: BASO # 0.01 K/mm3 (0.02-0.10); EOS # 0.13 K/mm3 (0.04-0.40); EOS % 1.9 % (0.0-4.0); HEMATOCRIT 38.5 % (42.0-52.0); HEMOGLOBIN 12.8 g/dL (13.5-18.0); MEAN CELL VOLUME 90 fl (78-100); MEAN CORPUSCULAR HEMOGLOBIN 30 pg (27-31); MEAN CORPUSCULAR HGB CONC 33 g/dL (33-37); MEAN PLATELET VOLUME 9.3 fl (7.4-10.4); MONO # 0.52 K/mm3 (0.20-0.80); NEU # 4.64 K/mm3 (1.40-6.50); PLATELET COUNT 188 K/mm3 (130-400); RED BLOOD COUNT 4.29 M/mm3 (4.20-5.60); RED CELL DISTRIBUTION WIDTH 14.3 % (11.5-14.5); WHITE BLOOD COUNT 6.9 K/mm3 (4.8-10.8)
[2021-07-09 16:39] LABS: ALBUMIN 3.3 g/dL (3.4-4.8); POTASSIUM 3.6 mmol/L (3.5-5.1)
[2021-07-09 16:40] LABS: CALCIUM 9.3 mg/dL (8.3-10.5)
[2021-07-09 16:41] LABS: TOTAL PROTEIN 7.1 g/dL (6.2-8.1)
[2021-07-09 16:43] LABS: TOTAL BILIRUBIN 0.4 mg/dL (0.2-1.2)
[2021-07-09 17:00] LABS: TROPONIN-I 3.841 ng/mL (<0.030)
--- NOTE | 2021-07-09 17:00 | NUR ---
REPORT RECEIVED FROM KANG LOWERY.
[2021-07-09 18:00] VITALS: BP 114/64
--- NOTE | 2021-07-09 19:00 | NUR ---
REPORT GIVEN TO HANK LEGER.
--- NOTE | 2021-07-09 20:33 | NUR ---
Report received from Avila MCKINNEY. Patient rests in bed with eyes closed. Oxygen in place at 3L/NC. Awakens easily with verbal stimuli. A/O x4. Denies pain. Lungs CTA all recio. Dim LLL. No cough noted at this time. Patient denies cough. Assessment completed. HS medications on hold resumed by Jenny Sol APRN. Takes crushed in applesauce with nectar thick liquids without difficulty. No choking or coughing noted. Hammond patent to DD with dark yellow urine in bag. Denies wants or needs. Bed alarm on. Call light in reach.
[2021-07-09 21:43] VITALS: BP 116/72
--- NOTE | 2021-07-10 00:16 | NUR ---
Resting quietly with eyes closed. Oxygen in place at 4L/NC. No signs of pain or distress. Bed alarm on. Call light in reach.
[2021-07-10 02:10] VITALS: BP 125/64
[2021-07-10 06:15] VITALS: BP 123/70
--- NOTE | 2021-07-10 07:06 | NUR ---
Report to Barbara KAPADIA.
[2021-07-10 07:21] LABS: BASO # 0.03 K/mm3 (0.02-0.10); EOS # 0.17 K/mm3 (0.04-0.40); EOS % 3.1 % (0.0-4.0); HEMATOCRIT 34.1 % (42.0-52.0); HEMOGLOBIN 11.5 g/dL (13.5-18.0); LYMPH# 1.69 K/mm3 (1.50-4.00); MEAN CELL VOLUME 90 fl (78-100); MEAN CORPUSCULAR HEMOGLOBIN 30 pg (27-31); MEAN CORPUSCULAR HGB CONC 34 g/dL (33-37); MEAN PLATELET VOLUME 9.1 fl (7.4-10.4); MONO # 0.47 K/mm3 (0.20-0.80); PLATELET COUNT 159 K/mm3 (130-400); RED BLOOD COUNT 3.79 M/mm3 (4.20-5.60); RED CELL DISTRIBUTION WIDTH 14.2 % (11.5-14.5); WHITE BLOOD COUNT 5.5 K/mm3 (4.8-10.8)
[2021-07-10 07:31] LABS: POTASSIUM 3.2 mmol/L (3.5-5.1)
[2021-07-10 07:32] LABS: CALCIUM 8.8 mg/dL (8.3-10.5)
[2021-07-10 07:33] LABS: TOTAL PROTEIN 6.1 g/dL (6.2-8.1)
[2021-07-10 07:35] LABS: TOTAL BILIRUBIN 0.5 mg/dL (0.2-1.2)
--- NOTE | 2021-07-10 08:00 | NUR ---
Patient 2:1 assist from bed to chair. Resting in chair. A&Ox4, drowsy. Responds to staff. Chair in locked position. Call light within reach.
[2021-07-10 08:05] LABS: TROPONIN-I 3.369 ng/mL (<0.030)
[2021-07-10 10:50] VITALS: BP 122/69
[2021-07-10 14:00] VITALS: BP 121/73
== END 2021-07-10 14:00 | disposition swing bed (61) | DRG 689 ==
LOC: MED/SURG 15:05
PROVIDERS: Family Medicine; Nurse Practitioner; ADMIT Physician Assistant
DX: N39.0 Urinary tract infection, site not specified (principal); J69.0 Pneumonitis due to inhalation of food and vomit; I21.9 Acute myocardial infarction, unspecified; J98.11 Atelectasis; N18.9 Chronic kidney disease, unspecified; I50.9 Heart failure, unspecified; G20 Parkinson's disease; J44.9 Chronic obstructive pulmonary disease, unspecified; F02.80 Dementia in other diseases classified elsewhere, unspecified severity, without behavioral disturbance, psychotic disturbance, mood disturbance, and anxiety; R09.02 Hypoxemia; Z20.822 Contact with and (suspected) exposure to COVID-19; R13.19 Other dysphagia; E87.6 Hypokalemia; B96.20 Unspecified Escherichia coli [E. coli] as the cause of diseases classified elsewhere; E86.0 Dehydration; R53.81 Other malaise; Z79.82 Long term (current) use of aspirin; Z88.5 Allergy status to narcotic agent
CPT/HCPCS: C9113; J0696; J1650; J1940; J2543; J3370; J3480; J7030; J7050; Q9967

== ENCOUNTER 2021-07-10 13:15 | Inpatient (IN) | payer MEDICARE, OTHER ==
[~2021-07-10] VITALS: Ht 167.6 cm; Wt 78.3 kg
[2021-07-10 14:30] VITALS: BP 121/73
[2021-07-11 06:49] VITALS: BP 126/68
[2021-07-11 06:59] LABS: BASO # 0.02 K/mm3 (0.02-0.10); EOS # 0.21 K/mm3 (0.04-0.40); EOS % 3.5 % (0.0-4.0); HEMATOCRIT 33.9 % (42.0-52.0); HEMOGLOBIN 11.3 g/dL (13.5-18.0); LYMPH# 1.97 K/mm3 (1.50-4.00); MEAN CELL VOLUME 91 fl (78-100); MEAN CORPUSCULAR HEMOGLOBIN 30 pg (27-31); MEAN CORPUSCULAR HGB CONC 33 g/dL (33-37); MEAN PLATELET VOLUME 9.3 fl (7.4-10.4); MONO # 0.42 K/mm3 (0.20-0.80); NEU # 3.31 K/mm3 (1.40-6.50); PLATELET COUNT 182 K/mm3 (130-400); RED BLOOD COUNT 3.72 M/mm3 (4.20-5.60); RED CELL DISTRIBUTION WIDTH 14.1 % (11.5-14.5)
[2021-07-11 07:20] LABS: ALBUMIN 2.9 g/dL (3.4-4.8)
[2021-07-11 07:21] LABS: POTASSIUM 3.8 mmol/L (3.5-5.1)
[2021-07-11 07:22] LABS: CALCIUM 8.7 mg/dL (8.3-10.5)
[2021-07-11 07:23] LABS: TOTAL PROTEIN 6.1 g/dL (6.2-8.1)
[2021-07-11 07:25] LABS: TOTAL BILIRUBIN 0.4 mg/dL (0.2-1.2)
[2021-07-11 10:16] LABS: URINE APPEARANCE CLEAR; URINE BILIRUBIN NEGATIVE (NEGATIVE); URINE COLOR YELLOW; URINE GLUCOSE NEGATIVE (NEGATIVE); URINE KETONE NEGATIVE (NEGATIVE); URINE NITRATE NEGATIVE (NEGATIVE); URINE PROTEIN(semi-quant) 1+ (NEGATIVE); URINE UROBILINOGEN NORMAL (NORMAL)
[2021-07-11 10:17] LABS: URINE BLOOD NEGATIVE (NEGATIVE); URINE LEUKOCYTE ESTERASE 1+ (NEGATIVE)
[2021-07-11 18:10] VITALS: BP 110/65
[2021-07-12 06:00] VITALS: BP 134/67
[2021-07-12 18:27] VITALS: BP 128/79
[2021-07-13 05:55] VITALS: BP 134/68
[2021-07-13 18:03] VITALS: BP 122/71
[2021-07-14 06:15] VITALS: BP 153/72
[2021-07-14 18:10] VITALS: BP 147/71
[2021-07-15 06:00] VITALS: BP 151/75
[2021-07-15 18:49] VITALS: BP 107/56
[2021-07-16 06:32] VITALS: BP 148/74
[2021-07-16 18:18] VITALS: BP 134/71
[2021-07-17 06:27] VITALS: BP 127/72
[2021-07-17 12:45] LABS: POTASSIUM 4.7 mmol/L (3.5-5.1)
[2021-07-17 12:46] LABS: CALCIUM 9.7 mg/dL (8.3-10.5)
[2021-07-17] MEDS ORDERED: LASIX20 M1 PO (12:56)
[2021-07-17] MEDS ORDERED: POTASSIUM CHLO20 ME4 PO (12:56)
[2021-07-17 13:26] LABS: BASO # 0.03 K/mm3 (0.02-0.10); EOS # 0.17 K/mm3 (0.04-0.40); EOS % 2.4 % (0.0-4.0); HEMATOCRIT 44.4 % (42.0-52.0); HEMOGLOBIN 14.8 g/dL (13.5-18.0); LYMPH# 1.97 K/mm3 (1.50-4.00); MEAN CELL VOLUME 90 fl (78-100); MEAN CORPUSCULAR HEMOGLOBIN 30 pg (27-31); MEAN CORPUSCULAR HGB CONC 33 g/dL (33-37); MEAN PLATELET VOLUME 9.2 fl (7.4-10.4); NEU # 4.45 K/mm3 (1.40-6.50); PLATELET COUNT 323 K/mm3 (130-400); RED BLOOD COUNT 4.92 M/mm3 (4.20-5.60); RED CELL DISTRIBUTION WIDTH 13.9 % (11.5-14.5); WHITE BLOOD COUNT 7.2 K/mm3 (4.8-10.8)
== END 2021-07-17 13:40 | DRG 947 ==
LOC: MED/SURG 13:15
PROVIDERS: ADMIT Physician Assistant
DX: R53.81 Other malaise (principal); J69.0 Pneumonitis due to inhalation of food and vomit; N39.0 Urinary tract infection, site not specified; J98.11 Atelectasis; N18.9 Chronic kidney disease, unspecified; I50.9 Heart failure, unspecified; J44.9 Chronic obstructive pulmonary disease, unspecified; E87.6 Hypokalemia; R13.10 Dysphagia, unspecified; G20 Parkinson's disease; F02.80 Dementia in other diseases classified elsewhere, unspecified severity, without behavioral disturbance, psychotic disturbance, mood disturbance, and anxiety; B96.20 Unspecified Escherichia coli [E. coli] as the cause of diseases classified elsewhere; R26.9 Unspecified abnormalities of gait and mobility; Z79.82 Long term (current) use of aspirin; Z88.5 Allergy status to narcotic agent
CPT/HCPCS: J0696; J1650

== ENCOUNTER → 2021-07-30 | Outpatient (CLI) | payer MEDICARE, OTHER ==
[~2021-07-30] MED LIST changes: +LASIX20 M1 PO; +POTASSIUM CHLO20 ME4 PO
[2021-07-30 14:38] LABS: BASO # 0.01 K/mm3 (0.02-0.10); EOS # 0.23 K/mm3 (0.04-0.40); EOS % 3.9 % (0.0-4.0); HEMATOCRIT 44.6 % (42.0-52.0); HEMOGLOBIN 14.7 g/dL (13.5-18.0); LYMPH# 2.11 K/mm3 (1.50-4.00); MEAN CELL VOLUME 93 fl (78-100); MEAN CORPUSCULAR HEMOGLOBIN 31 pg (27-31); MEAN CORPUSCULAR HGB CONC 33 g/dL (33-37); MEAN PLATELET VOLUME 8.7 fl (7.4-10.4); MONO # 0.38 K/mm3 (0.20-0.80); PLATELET COUNT 178 K/mm3 (130-400); RED CELL DISTRIBUTION WIDTH 14.3 % (11.5-14.5); WHITE BLOOD COUNT 5.8 K/mm3 (4.8-10.8)
[2021-07-30 14:51] LABS: POTASSIUM 4.5 mmol/L (3.5-5.1)
[2021-07-30 14:52] LABS: CALCIUM 9.3 mg/dL (8.3-10.5)
== END ==
LOC: LAB 14:16
PROVIDERS: Family Medicine
DX: J69.0 Pneumonitis due to inhalation of food and vomit (principal); I70.90 Unspecified atherosclerosis; N18.30 Chronic kidney disease, stage 3 unspecified; J44.9 Chronic obstructive pulmonary disease, unspecified; F03.90 Unspecified dementia, unspecified severity, without behavioral disturbance, psychotic disturbance, mood disturbance, and anxiety; F41.8 Other specified anxiety disorders; E87.6 Hypokalemia; Z87.440 Personal history of urinary (tract) infections; Z87.01 Personal history of pneumonia (recurrent)

== ENCOUNTER → 2021-08-10 | Outpatient (CLI) | payer MEDICARE, OTHER ==
[2021-08-10 09:23] LABS: PH-URINE 6.5 (5.0 - 8.0); URINE APPEARANCE CLOUDY; URINE BILIRUBIN NEGATIVE (NEGATIVE); URINE COLOR LT YELLOW; URINE GLUCOSE NEGATIVE (NEGATIVE); URINE KETONE NEGATIVE (NEGATIVE); URINE NITRATE POSITIVE (NEGATIVE); URINE PROTEIN(semi-quant) 1+ (NEGATIVE); URINE UROBILINOGEN NORMAL (NORMAL)
[2021-08-10 09:24] LABS: URINE BLOOD 50 ery/uL (NEGATIVE); URINE LEUKOCYTE ESTERASE 2+ (NEGATIVE); URINE WBC >50 /hpf (0-3)
== END ==
LOC: LAB 07:57
PROVIDERS: Family Medicine
DX: R30.0 Dysuria (principal)

== ENCOUNTER → 2021-09-06 | Outpatient (CLI) | payer MEDICARE, OTHER ==
[2021-09-06 17:09] LABS: URINE APPEARANCE HAZY; URINE BILIRUBIN NEGATIVE (NEGATIVE); URINE BLOOD 250 ery/uL (NEGATIVE); URINE COLOR YELLOW; URINE GLUCOSE NEGATIVE (NEGATIVE); URINE KETONE NEGATIVE (NEGATIVE); URINE LEUKOCYTE ESTERASE 2+ (NEGATIVE); URINE MUCUS PRESENT (NOT PRESENT); URINE NITRATE NEGATIVE (NEGATIVE); URINE PROTEIN(semi-quant) 3+ (NEGATIVE); URINE UROBILINOGEN NORMAL (NORMAL); URINE WBC >50 /hpf (0-3)
== END ==
LOC: LAB 16:22
PROVIDERS: Nurse Practitioner Family
DX: R30.9 Painful micturition, unspecified (principal)

== ENCOUNTER → 2022-05-03 | Outpatient (CLI) | payer MEDICARE, OTHER ==
[2022-05-03 10:34] LABS: ALBUMIN 4.3 g/dL (3.4-4.8); POTASSIUM 4.2 mmol/L (3.5-5.1)
[2022-05-03 10:35] LABS: CALCIUM 9.8 mg/dL (8.3-10.5)
[2022-05-03 10:36] LABS: TOTAL PROTEIN 8.2 g/dL (6.2-8.1)
[2022-05-03 10:38] LABS: TOTAL BILIRUBIN 0.5 mg/dL (0.2-1.2)
== END ==
LOC: LAB 10:09
PROVIDERS: Family Medicine
DX: E78.2 Mixed hyperlipidemia (principal); N18.30 Chronic kidney disease, stage 3 unspecified; I12.9 Hypertensive chronic kidney disease with stage 1 through stage 4 chronic kidney disease, or unspecified chronic kidney disease